=== PATIENT | male | born 1960 | race Caucasian/White ===

== ENCOUNTER 2016-12-28 09:33 | Inpatient (IN) | payer OTHER, MEDICARE ==
[2016-12-28] VITALS (10 sets, daily range): BP systolic 109–128; BP diastolic 65–79; PULSE 56–68; RESP 18–20; TEMP 96.8–98.1; O2SAT 94–100
[~2016-12-28] VITALS: Ht 170.2 cm; Wt 102.5 kg
[~2016-12-28 09:33] MED LIST: ASPI81TA82 PO; ATEN-102 PO; GABA300C3 PO; MOBI15TA PO; ULTR50TA PO; ZOCO40TA PO
[2016-12-28] MEDS ORDERED: TRAM50TA PO (09:53)
[2016-12-28] MEDS ORDERED: SIMV40TA PO (09:53)
[2016-12-28] MEDS ORDERED: ATEN50TA PO (09:53)
[2016-12-28] MEDS ORDERED: GABA300C5 PO (09:53)
[2016-12-28] MEDS ORDERED: ASPI81CH CHEW (09:53)
[2016-12-28] MEDS ORDERED: MELO-1 PO (09:53)
[2016-12-28] MEDS ORDERED: SODIUM CHLORIDE 0.9% FLUSH 10 ML FLUSH IVF PRN (10:00)
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
--- NOTE | 2016-12-28 10:13 | RADRPT ---
EXAM DATE/TIME: 12/28/2016 09:53 [facility] COMPARISON: No previous studies available for comparison. INDICATIONS : Chest pain. MEDICAL HISTORY : Myocardial infarction. SURGICAL HISTORY : Coronary artery stent. ENCOUNTER: Initial ACUITY: 1 day PAIN SCORE: 0/10 LOCATION: Bilateral chest FINDINGS: A single view of the chest demonstrates the lungs to be symmetrically aerated without evidence of mas s, infiltrate or effusion. The cardiomediastinal contours are unremarkable. Osseous structures are intact. CONCLUSION: No acute disease. Nicholas Preciado MD FACR on December 28, 2016 at 10:12 Board Certified Radiologist. This report was verified electronically.
[2016-12-28 10:22] LABS: AUTOMATED NEUTROPHIL # 4.2 TH/MM3 (1.8-7.7); BASOPHIL % 0.5 % (0.0-2.0); EOSINOPHIL # 0.4 TH/MM3 (0-0.4); EOSINOPHIL % 4.7 % (0.0-4.0); HEMATOCRIT 41.5 % (39.0-51.0); HEMO FLAGS DIFF FINAL; LYMPHOCYTE # 3.6 TH/MM3 (1.0-4.8); MEAN CELL VOLUME 90.8 FL (80.0-100.0); MEAN CORPUSCULAR HEMOGLOBIN 30.8 PG (27.0-34.0); MEAN CORPUSCULAR HGB CONC 33.9 % (32.0-36.0); MONO % 10.5 % (0.0-8.0); NEUT % 45.3 % (16.0-70.0); PLATELET COUNT 283 TH/MM3 (150-450); RED BLOOD COUNT 4.57 MIL/MM3 (4.50-5.90); WHITE BLOOD COUNT 9.3 TH/MM3 (4.0-11.0)
[2016-12-28 10:31] LABS: APTT (PATIENT) 27.8 SEC (24.3-30.1); PROTHROMBIN TIME - PATIENT 10.5 SEC (9.8-11.6)
[2016-12-28 10:50] LABS: ANION GAP 5 MEQ/L (5-15); AST (GOT) 24 U/L (15-37); BICARBONATE 25.8 MEQ/L (21.0-32.0); BLOOD UREA NITROGEN 13 MG/DL (7-18); CHLORIDE 109 MEQ/L (98-107); GLOMERULAR FILTRATION RATE 86 ML/MIN (>89); POTASSIUM 3.9 MEQ/L (3.5-5.1); SODIUM (NA) 140 MEQ/L (136-145)
[2016-12-28 10:55] LABS: ALKALINE PHOSPHATASE 64 U/L (45-117); ALT (GPT) 34 U/L (12-78); TOTAL BILIRUBIN ADULT 0.2 MG/DL (0.2-1.0)
[2016-12-28] MEDS ORDERED: IOHEXOL 350 MG/ML 100 ML BTL (for Cath Lab) OTHER ONE (11:06)
[2016-12-28] MEDS ORDERED: IOHEXOL 350 MG/ML 50 ML BTL (for Cath Lab) OTHER ONE (11:06)
--- NOTE | 2016-12-28 11:26 | HHI.HP ---
[facility] Primary Care Physician Osman Dave MD Chief Complaint Chest pain History of Present Illness This is a 46-year-old male that presents to ED with history of CAD sitting at an [place] in the 15 years ago while in [place] needing a stent. He presents stating that about 9:00 this morning while walking to the bathroom he developed a left-sided chest pressure. It made him dizzy. He was short of breath, nauseous, and diaphoretic. He rates as a 10 out of 10. States he took a Tylenol and a baby aspirin and sat down. States symptoms lasted 1 hour. States they're similar to when he needed his stent 10-15 years ago and when he had a heart attack. States he does she really nothing exertional. States he is disabled secondary chronic back issues. He does ride a bicycle about 3 blocks every morning to get his daughter to school. States he rides it slow, never has discomforts. He wrote it this morning with his daughter and did not have discomfort however he felt dizzy. States he follows a golf club maker Dr Gan and believes his last stress test was about a year ago. States he had a normal chemical stress test done. States he has not had a cardiac catheterization since the stent 10-15 years ago. Denies recent illnesses. Denies fevers or chills. Patient continues to smoke cigarettes. Voices compliance with medications. Review of Systems General: Patient denies fevers, chills recent, and recent travel HEENT: Patient denies headache, sore throat, difficulty swallowing. Cardiovascular: Has the chest discomfort as mentioned above. Denies sensation of heart beating rapidly or irregularly. No syncope. He was diaphoretic. Respiratory: He was short of breath. Denies inspirational chest discomfort. Denies coughing wheezing or hemoptysis. GI: He was nauseous. Patient denies vomiting, diarrhea, abdominal pain, bloody stools. Musculoskeletal: Patient denies joint pain or edema. Denies calf pain or edema. Neurovascular: Patient denies numbness, tingling, weakness in extremities. Denies headache. Endocrine: Denies polyuria and polydipsia. Hematologic: Denies easy bruising. Skin: Denies rash or itching. Past Family Social History Allergies: Coded Allergies: No Known Allergies (Unverified , 12/28/16) Past Medical History CAD was stated stent 10-15 years ago. Hypertension, hyperlipidemia, chronic back pain. Tobacco abuse. Denies diabetes. Past Surgical History Cardiac catheterization with stenting about 10-15 years ago. Reported Medications Reported Meds & Active Scripts Active Reported Simvastatin 40 Mg Tab 40 Mg PO HS Tramadol (Tramadol HCl) 50 Mg Tab 50 Mg PO Q4H PRN Meloxicam 15 Mg Tab 15 Mg PO DAILY Gabapentin 300 Mg Cap 300 Mg PO TID Atenolol 50 Mg Tab 50 Mg PO DAILY Aspirin 81 Mg Chew 81 Mg CHEW DAILY Active Ordered Medications Current Medications Medications (Trade) Dose Ordered Sig/Heri Route Start Time Stop Time Status Last Admin (NS Flush) 2 ml UNSCH PRN IVF 12/28/16 10:00 Family History States that his mother had CAD. Social History Patient continues smoke. Smokes one pack of cigarettes daily for 2 years but prior that he smoked one pack of cigarettes daily for about 10 years. Denies alcohol or illicit drugs. States he is disabled secondary to chronic back pain. Physical Exam Vital Signs Vital Signs Date Time Temp Pulse Resp B/P (MAP) Pulse Ox O2 Delivery O2 Flow Rate FiO2 12/28/16 09:56 99 Nasal Cannula 2.00 12/28/16 09:56 60 18 117/75 (89) 99 Nasal Cannula 2.00 120/79 (93) 12/28/16 09:44 98.1 56 20 128/77 (94) 98 Room Air 12/28/16 09:39 98.1 56 20 128/77 (94) Physical Exam GENERAL: This is a well-nourished, well-developed patient, in no apparent distress. Patient speaks in clear complete sentences. Patient is pleasant. HEENT: Head is atraumatic and normocephalic. Neck is supple without lymphadenopathy and trachea is midline. No JVD or carotid bruits. CARDIOVASCULAR: Regular rate and rhythm without murmurs, gallops, or rubs. RESPIRATORY: Clear to auscultation. Breath sounds equal bilaterally. No wheezes , rales, or rhonchi. Chest wall is nontender. No use of accessory muscles. GASTROINTESTINAL: Abdomen is nontender, nondistended. Abdomen soft. No obvious pulsatile mass or bruit. No CVA tenderness. Strong femoral pulses bilaterally. Normal bowel sounds in all quadrants. MUSCULOSKELETAL: Patient is moving upper and lower extremities freely. No calf tenderness or edema, no Homans sign. Strong pulses in upper and lower extremities. NEUROLOGICAL: Patient is alert and oriented. Cranial nerves 2-12 are grossly intact. No focal deficits and speech is clear. SKIN: No rash and turgor is normal. Laboratory Laboratory Tests Test 12/28/16 09:50 White Blood Count 9.3 Red Blood Count 4.57 Hemoglobin 14.1 Hematocrit 41.5 Mean Corpuscular Volume 90.8 Mean Corpuscular Hemoglobin 30.8 Mean Corpuscular Hemoglobin Concent 33.9 Red Cell Distribution Width 15.0 Platelet Count 283 Mean Platelet Volume 7.8 Neutrophils (%) (Auto) 45.3 Lymphocytes (%) (Auto) 39.0 Monocytes (%) (Auto) 10.5 Eosinophils (%) (Auto) 4.7 Basophils (%) (Auto) 0.5 Neutrophils # (Auto) 4.2 Lymphocytes # (Auto) 3.6 Monocytes # (Auto) 1.0 Eosinophils # (Auto) 0.4 Basophils # (Auto) 0.0 CBC Comment DIFF FINAL Differential Comment Prothrombin Time 10.5 Prothromb Time International Ratio 1.0 Activated Partial Thromboplast Time 27.8 Blood Urea Nitrogen 13 Creatinine 0.92 Random Glucose 97 Total Protein 6.8 Albumin 3.2 Calcium Level 9.1 Magnesium Level 2.0 Alkaline Phosphatase 64 Aspartate Amino Transf (AST/SGOT) 24 Alanine Aminotransferase (ALT/SGPT) 34 Total Bilirubin 0.2 Sodium Level 140 Potassium Level 3.9 Chloride Level 109 Carbon Dioxide Level 25.8 Anion Gap 5 Estimat Glomerular Filtration Rate 86 Troponin I LESS THAN 0.02 Result Diagram: 12/28/1650 12/28/16 0950 Course Initial EKG is sinus bradycardia rate of [address] segment depressions or elevations. Caprini VTE Risk Assessment Caprini VTE Risk Assessment: No/Low Risk (score <= 1) Caprini Risk Assessment Model Point Value = 1 Point Value = 2 Point Value = 3 Point Value = 5 Age 41-60 Minor surgery BMI > 25 kg/m2 Swollen legs Varicose veins or History of unexplained or recurrent spontaneous Oral contraceptives or hormone replacement Sepsis (< 1 month) Serious lung disease, including pneumonia (< 1 month) Abnormal pulmonary function Acute myocardial infarction Congestive heart failure (< 1 month) History of inflammatory bowel disease Medical patient at bed rest Age 61-74 Arthroscopic surgery Major open surgery (> 45 min) Laparoscopic surgery (> 45 min) Malignancy Confined to bed (> 72 hours) Immobilizing plaster cast Central venous access Age >= 75 History of VTE Family history of VTE Factor V Leiden Prothrombin [id number] Lupus anticoagulant Anticardiolipin antibodies Elevated serum homocysteine Heparin-induced thrombocytopenia Other congenital or acquired thrombophilia Stroke (< 1 month) Elective arthroplasty Hip, pelvis, or leg fracture Acute spinal cord injury (< 1 month) Prophylaxis Regimen Total Risk Factor Score Risk Level Prophylaxis Regimen 0-1 Low Early ambulation 2 Moderate Order ONE of the following: *Sequential Compression Device (SCD) *Heparin 5000 units SQ BID 3-4 Higher Order ONE of the following medications: *Heparin 5000 units SQ TID *Enoxaparin/Lovenox 40 mg SQ daily (WT < 150 kg, CrCl > 30 mL/min) *Enoxaparin/Lovenox 30 mg SQ daily (WT < 150 kg, CrCl > 10-29 mL/min) *Enoxaparin/Lovenox 30 mg SQ BID (WT < 150 kg, CrCl > 30 mL/min) AND/OR *Sequential Compression Device (SCD) 5 or more Highest Order ONE of the following medications: *Heparin 5000 units SQ TID (Preferred with Epidurals) *Enoxaparin/Lovenox 40 mg SQ daily (WT < 150 kg, CrCl > 30 mL/min) *Enoxaparin/Lovenox 30 mg SQ daily (WT < 150 kg, CrCl > 10-29 mL/min) *Enoxaparin/Lovenox 30 mg SQ BID (WT < 150 kg, CrCl > 30 mL/min) AND *Sequential Compression Device (SCD) Assessment and Plan Assessment and Plan * Chest pain: Patient will continue to have serial cardiac enzymes and EKGs for ruling out purposes. * CAD: We'll reassess with this hospitalization. He will continue his follow- up with his golf club maker on an outpatient basis as well. * Hypertension: Continue current medication. * Hyperlipidemia: Continue current medication. * Tobacco abuse: Patient has been counseled on importance of smoking cessation. Patient is stable at this time. He is agreeable to this plan. Jose C Guerra Dec 28, 2016 11:26
[2016-12-28] MEDS ORDERED: ONDANSETRON HCL 4 MG/2 ML VIAL IV PUSH PRN (11:45)
[2016-12-28] MEDS ORDERED: NITROGLYCERIN 0.4 MG SL 25 TABS/BTL SL PRN (11:45)
[2016-12-28] MEDS ORDERED: ACETAMINOPHEN 500 MG CPLT PO PRN (11:45)
[2016-12-28] MEDS ORDERED: SODIUM CHLORIDE 0.9% FLUSH 10 ML FLUSH IV FLUSH PRN (11:45)
[2016-12-28] MEDS ORDERED: TEMAZEPAM 15 MG CAP PO PRN (11:45)
[2016-12-28] MEDS: NITROGLYCERIN 2% OINT 1 GM PACKET TOP SCH ×2 (12:00→18:40)
[2016-12-28 12:46] LABS: CREATINE KINASE 185 U/L (39-308)
[2016-12-28 12:58] LABS: CKMB 3.7 NG/ML (0.5-3.6)
--- NOTE | 2016-12-28 15:09 | EKG ---
Date Performed: 12/28/2016 Time Performed: 12:07:02 PTAGE: 56 years EKG: SINUS BRADYCARDIA BORDERLINE ECG NO SIG CHANGE PREVIOUS TRACING : 12/28/2016 09.44 DOCTOR: Alexandro Dukes Interpretating Date/Time 12/28/2016 15:07:30
--- NOTE | 2016-12-28 15:09 | EKG ---
Date Performed: 12/28/2016 Time Performed: 09:44:25 PTAGE: 56 years EKG: SINUS BRADYCARDIA BORDERLINE ECG PREVIOUS TRACING : 12/18/2016 18.28 DOCTOR: Alexandro Dukes Interpretating Date/Time 12/28/2016 15:07:40
[2016-12-28] MEDS: GABAPENTIN 300 MG CAP PO SCH ×2 (15:36→18:40)
[2016-12-28 17:08] LABS: CREATINE KINASE 168 U/L (39-308)
[2016-12-28 17:21] LABS: CKMB 3.4 NG/ML (0.5-3.6)
[2016-12-28] MEDS: SODIUM CHLORIDE 0.9% FLUSH 10 ML FLUSH IV FLUSH SCH (21:00)
[2016-12-28] MEDS: PRAVASTATIN SOD 80 MG TAB PO SCH (22:29)
[2016-12-29] VITALS (14 sets, daily range): BP systolic 102–145; BP diastolic 53–88; PULSE 51–78; RESP 16–19; TEMP 97.6–98.7; O2SAT 93–97
[2016-12-29] MEDS: NITROGLYCERIN 2% OINT 1 GM PACKET TOP SCH ×4 (06:00→17:22)
[2016-12-29] MEDS ORDERED: ATENOLOL 50 MG TAB PO SCH (09:00)
--- NOTE | 2016-12-29 09:37 | EKG ---
Date Performed: 12/28/2016 Time Performed: 16:04:16 PTAGE: 56 years EKG: SINUS BRADYCARDIA BORDERLINE ECG NO CHANGE FROM PRIOR PREVIOUS TRACING : 12/28/2016 12.07 DOCTOR: Alexandro Dukes Interpretating Date/Time 12/29/2016 09:36:05
[2016-12-29] MEDS: GABAPENTIN 300 MG CAP PO SCH ×3 (09:43→17:22)
[2016-12-29] MEDS: FAMOTIDINE 20 MG TAB PO SCH ×2 (09:43→20:45)
[2016-12-29] MEDS: ASPIRIN 325 MG TAB PO SCH (09:43)
[2016-12-29] MEDS: SODIUM CHLORIDE 0.9% FLUSH 10 ML FLUSH IV FLUSH SCH ×3 (09:44→20:45)
[2016-12-29] MEDS ORDERED: REGADENOSON INJ 0.4 MG/5 ML SYR ONE (10:58)
--- NOTE | 2016-12-29 13:16 | RADRPT ---
EXAM DATE/TIME: 12/29/2016 10:30 [facility] COMPARISON: No previous studies available for comparison. INDICATIONS : Substernal chest pain with dyspnea and lightheadedness. Angina. DOSE: 35 mCi Tc99m Myoview at stress. 11 mCi Tc99m Myoview at rest. 0.4 mg Lexiscan STRESS SYMPTOMS: Lightheadedness. EJECTION FRACTION: 48% MEDICAL HISTORY : Myocardial infarction. Hypercholesterolemia. Hypertension. SURGICAL HISTORY : Coronary artery stent. ENCOUNTER: Initial ACUITY: 1 day PAIN SCALE: 8/10 LOCATION: Substernal chest TECHNIQUE: The patient underwent pharmacologic stress with infusion of prescribed dose. Continuous ECG tracing was monitored during stress. Gated SPECT imaging was performed after stress and conventional SPECT i maging was performed at rest. The examination was performed on a SPECT/CT scanner, both attenuation and non-corrected datasets were reviewed. FINDINGS: DISTRIBUTION: The maximum perfused segment at stress is in the lateral wall. PERFUSION STUDY: There is a moderate size mild severity reversible defect involving the apical segment of the anterior wall. Small fixed defect is present at the apex. GATED STUDY: There is hypokinesis involving the apical segment of the anterior wall. CONCLUSION: 1. Moderate-sized mild severity reversible defect involving the apical segment of the anterior wall w ith fixed defect in the apex. Ischemia is not excluded. RISK CATEGORY: Intermediate (1-3% Annual Mortality Rate) Patrice Barrett MD on December 29, 2016 at 13:13 Board Certified Radiologist. This report was verified electronically.
--- NOTE | 2016-12-29 15:23 | HHI.PR ---
Subjective Remarks f/u; chest pain in no acute distress. no chest pain or sob at this time. stress test noted. HR is on low side. d/w the RN. Objective Vitals Vital Signs Date Time Temp Pulse Resp B/P (MAP) Pulse Ox O2 Delivery O2 Flow Rate FiO2 12/29/16 13:32 97.9 56 16 123/82 (96) 97 12/29/16 09:40 52 12/29/16 07:37 98.0 65 16 104/68 (80) 95 12/29/16 04:00 57 12/29/16 03:11 98.5 66 18 110/67 (81) 96 12/29/16 00:09 97.6 67 19 102/53 (69) 93 12/29/16 00:00 59 12/28/16 20:00 64 12/28/16 19:48 97.8 65 19 109/69 (82) 94 12/28/16 16:15 96.8 68 20 115/65 (82) 96 12/28/16 16:13 97.8 68 20 115/65 (82) 97 12/28/16 16:00 56 Result Diagram: 12/28/16 0950 12/28/16 0950 Imaging Last Impressions Chest X-Ray 12/28/16 0949 Signed Impressions: Service Date/Time: Wednesday, December 28, 2016 09:53 - CONCLUSION: No acute disease. Nicholas Preciado MD FACR Objective Remarks GENERAL: This is a well-nourished, well-developed patient, in no apparent distress. CARDIOVASCULAR:bradycardic and regular rhythm without murmurs, gallops, or rubs. RESPIRATORY: Clear to auscultation. Breath sounds equal bilaterally. No wheezes , rales, or rhonchi. GASTROINTESTINAL: Abdomen soft, non-tender, nondistended. Normal, active bowel sounds MUSCULOSKELETAL: Extremities without clubbing, cyanosis, or edema. NEURO: Alert & Oriented x4 to person, place, time, situation. Moves all ext x4 Medications and IVs Current Medications Sodium Chloride (NS Flush) 2 ml UNSCH PRN IVF FLUSH AFTER USING IV ACCESS; Start 12/28/16 at 10:00 Atenolol (Tenormin) 50 mg DAILY PO ; Start 12/29/16 at 09:00 Gabapentin (Neurontin) 300 mg TID PO Last administered on 12/29/16 14:47; Start 12/28/16 at 13:00 Pravastatin Sodium (Pravachol) 80 mg HS PO Last administered on 12/28/16 22: 29; Start 12/28/16 at 21:00 Sodium Chloride (NS Flush) 2 ml UNSCH PRN IV FLUSH FLUSH AFTER USING IV ACCESS ; Start 12/28/16 at 11:45 Sodium Chloride (NS Flush) 2 ml BID IV FLUSH Last administered on 12/29/16 09 :44; Start 12/28/16 at 21:00 Acetaminophen (Tylenol) 500 mg Q4H PRN PO HEADACHE; Start 12/28/16 at 11:45 Morphine Sulfate (Morphine Inj) 2 mg Q4H PRN IV PUSH PAIN SCALE 8 TO 10; Start 12/28/16 at 11:45 Ondansetron HCl (Zofran Inj) 4 mg Q6H PRN IV PUSH NAUSEA; Start 12/28/16 at 11 :45 Famotidine (Pepcid) 20 mg BID PO Last administered on 12/29/16 09:43; Start 12/29/16 at 09:00 Nitroglycerin (Nitroglycerin 2% Oint) 1 inch Q6HR TOP Last administered on 14:47; Start 12/28/16 at 12:00 Nitroglycerin (Nitrostat Sl) 0.4 mg Q5M PRN SL CHEST PAIN; Start 12/28/16 at 11:45 Aspirin (Aspirin) 325 mg DAILY PO Last administered on 12/29/16 09:43; Start 12/29/16 at 09:00 Temazepam (Restoril) 15 mg HS PRN PO INSOMNIA; Start 12/28/16 at 11:45 Regadenoson (Lexiscan Inj) 0.4 mg STK-MED ONCE .ROUTE Last administered on 10:58; Start 12/29/16 at 10:58; Stop 12/29/16 at 10:59; Status DC A/P Assessment and Plan A/P - chest pain with abnormal stress test and history of CAD/ stent placement cardiac enzymes negative- continue aspirin, BB and statin will consult cardiology. -hypertension; on Atenolol- will decrease the dose due to bradycardia- continue to monitor -bradycardia- decrease Atenolol and continue to monitor -DVT prophylaxis- pending cardiology evaluation. Nando Gómez MD Dec 29, 2016 15:23
--- NOTE | 2016-12-29 16:13 | PD.CONS ---
HPI Consult Requested By Reason for Consult Chest pain and abnormal stress nuclear Primary Care Physician Osman Dave MD History of Present Illness I have reviewed office and hospital records. The patient is followed by in my group. He had an NE with his stent approximately 1998. Stress nuclear within the last 3 years done as an outpatient was normal. He is moderately active and taking his daughter to the bus stop on a bicycle. He has had no cardiac symptoms until yesterday. On riding back from the bus stop he had a stop once because of mild lightheadedness. At 9 AM in the morning he developed a sharp and then left precordial chest pressure which expanded across his chest. He was sweaty with this and slightly short of breath. There was no radiation or other associated symptoms and this resolved in 10-15 minutes. It has not recurred. EKGs show sinus rhythm and are normal. Stress nuclear shows a moderate size area of mild apical anterior ischemia. Review of Systems Consitutional: DENIES: Fatigue Eyes: DENIES: Amaurosis Fugax HEENT: COMPLAINS OF: Lightheadedness Respiratory: COMPLAINS OF: Snoring, Shortness of breath, DENIES: Cough, Wheezing Cardiovascular: COMPLAINS OF: Chest pain Neurologic: COMPLAINS OF: Poor Balance, DENIES: Tingling or numbness Musculoskeletal: COMPLAINS OF: Joint pain, Limited range of motion Psychiatric: DENIES: Anxiety, Depression Past Family Social History Allergies: Coded Allergies: No Known Allergies (Unverified , 12/28/16) Past Medical History Hypertension Hyperlipidemia Obesity Chronic back pain Past Surgical History Appendectomy Reported Medications Reported Meds & Active Scripts Active Reported Simvastatin 40 Mg Tab 40 Mg PO HS Tramadol (Tramadol HCl) 50 Mg Tab 50 Mg PO Q4H PRN Meloxicam 15 Mg Tab 15 Mg PO DAILY Gabapentin 300 Mg Cap 300 Mg PO TID Atenolol 50 Mg Tab 50 Mg PO DAILY Aspirin 81 Mg Chew 81 Mg CHEW DAILY Active Ordered Medications Current Medications Medications (Trade) Dose Ordered Sig/Heri Route Start Time Stop Time Status Last Admin (NS Flush) 2 ml UNSCH PRN IVF 12/28/16 10:00 (Neurontin) 300 mg TID PO 12/28/16 13:00 12/29/16 14:47 (Pravachol) 80 mg HS PO 12/28/16 21:00 12/28/16 22:29 (NS Flush) 2 ml UNSCH PRN IV FLUSH 12/28/16 11:45 (NS Flush) 2 ml BID IV FLUSH 12/28/16 21:00 12/29/16 09:44 (Tylenol) 500 mg Q4H PRN PO 12/28/16 11:45 (Morphine Inj) 2 mg Q4H PRN IV PUSH 12/28/16 11:45 (Zofran Inj) 4 mg Q6H PRN IV PUSH 12/28/16 11:45 (Pepcid) 20 mg BID PO 12/29/16 09:00 12/29/16 09:43 (Nitroglycerin 2% Oint) 1 inch Q6HR TOP 12/28/16 12:00 12/29/16 14:47 (Nitrostat Sl) 0.4 mg Q5M PRN SL 12/28/16 11:45 (Aspirin) 325 mg DAILY PO 12/29/16 09:00 12/29/16 09:43 (Restoril) 15 mg HS PRN PO 12/28/16 11:45 (Tenormin) 25 mg DAILY PO 12/30/16 09:00 Family History The patient has a domestic partner. He is originally from the [place]. He smokes a few cigarettes per day and does not drink anymore. Family history noncontributory Physical Exam Vital Signs Vital Signs Date Time Temp Pulse Resp B/P (MAP) Pulse Ox O2 Delivery O2 Flow Rate FiO2 12/29/16 16:02 98.2 64 16 131/88 (102) 95 12/29/16 15:32 3.00 12/29/16 13:32 97.9 56 16 123/82 (96) 97 12/29/16 09:40 52 12/29/16 07:37 98.0 65 16 104/68 (80) 95 12/29/16 04:00 57 12/29/16 03:11 98.5 66 18 110/67 (81) 96 12/29/16 00:09 97.6 67 19 102/53 (69) 93 12/29/16 00:00 59 12/28/16 20:00 64 12/28/16 19:48 97.8 65 19 109/69 (82) 94 12/28/16 16:15 96.8 68 20 115/65 (82) 96 12/28/16 16:13 97.8 68 20 115/65 (82) 97 Physical Exam CONSTITUTIONAL: Overweight patient in no apparent distress. EYES: Conjunctiva normal. Sclera nonicteric. Eyelids normal. No xanthelasma. HEENT: Oral mucosa normal without pallor or cyanosis. NECK: JVD less than or equal to 5 cm of water. RESPIRATORY: Breathing is unlabored without accessory muscle use. Normal breath sounds. No wheezes, rales or rubs present. CARDIOVASCULAR: Normal point of maximal impulse. No cardiac thrill present. Regular rate and rhythm. No murmurs, gallops, rubs or clicks present. PULSES: Carotid arteries: Normal pulses bilaterally without bruits. Palmar arteries: Radial pulses 2+ bilaterally Abdominal aorta: Aortic pulses normal without bruits or enlargement. Femoral arteries: 2+ bilaterally. No bruits present. Pedal pulses: 1+ bilaterally PERIPHERAL CIRCULATION: No cyanosis, clubbing, edema or varicosities present. GASTROINTESTINAL: Normal bowel sounds. Nontender without rigidity or guarding. No masses present. No hepatomegaly. Liver is nontender to palpation and spleen is nonpalpable. Digital rectal exam-not indicated for cardiovascular exam. MUSCULOSKELETAL: No kyphosis or scoliosis present. The patient is not ambulated. Able to undergo rehabilitation. SKIN: Skin turgor is normal. No rashes. NEUROLOGIC: Grossly oriented to person, place and time. Normal mood and appropriate affect. Laboratory Labs have been reviewed. Chest X-Ray 12/28/16948 Signed Impressions: Service Date/Time: Wednesday, December 28, 2016 09:53 - CONCLUSION: No acute disease. Nicholas Preciado MD FACR Result Diagram: 12/28/1694912/28/16949 Imaging Last 48 hours Impressions Chest X-Ray 12/28/16948 Signed Impressions: Service Date/Time: Wednesday, December 28, 2016 09:53 - CONCLUSION: No acute disease. Nicholas Preciado MD FACR Assessment and Plan Assessment and Plan Problems: Chest discomfort suggestive of unstable angina. Hypertension Hyperlipidemia Obesity Recommendations: I have spoken to the chest pain clinic PA who will start a heparin drip. No heavy exertion Aspirin Low-cholesterol/salt diet with weight loss. Continue atenolol. Catheterization with possible intervention on Saturday if stable with my partner, Dr. Macdonald. The risks/benefits/alternatives were explained and informed consent obtained. All questions were answered. Galen Sanders MD Dec 29, 2016 16:13
[2016-12-29] MEDS: HEPARIN 25,000 UNITS/D5W 250ML IV PRN (17:27)
[2016-12-29] MEDS ORDERED: HEPARIN SODIUM - IV 10,000 UNITS/10 ML VIAL IV ONE (18:00)
[2016-12-29] MEDS: PRAVASTATIN SOD 80 MG TAB PO SCH (20:45)
[2016-12-30] VITALS (11 sets, daily range): BP systolic 110–129; BP diastolic 56–82; PULSE 48–78; RESP 18–20; TEMP 97.4–98.2; O2SAT 94–96
[2016-12-30] MEDS: NITROGLYCERIN 2% OINT 1 GM PACKET TOP SCH ×4 (01:17→18:17)
[2016-12-30] MEDS: MORPHINE SULFATE 4 MG/ML INJ IV PUSH PRN (02:02)
[2016-12-30] MEDS: SODIUM CHLORIDE 0.9% FLUSH 10 ML FLUSH IV FLUSH SCH ×2 (09:00→20:26)
[2016-12-30 09:42] LABS: APTT (PATIENT) 57.8 SEC (24.3-30.1)
[2016-12-30] MEDS: GABAPENTIN 300 MG CAP PO SCH ×3 (09:50→18:18)
[2016-12-30] MEDS: FAMOTIDINE 20 MG TAB PO SCH ×2 (09:50→20:25)
[2016-12-30] MEDS: ATENOLOL 25 MG TAB PO SCH (09:50)
[2016-12-30] MEDS: ASPIRIN 325 MG TAB PO SCH (09:50)
[2016-12-30] MEDS ORDERED: PNEUMOCOCCAL POLYVALENT INJ 25 MCG/0.5 ML SYR IM ONE (10:00)
[2016-12-30] MEDS: HEPARIN 25,000 UNITS/D5W 250ML IV PRN (10:38)
--- NOTE | 2016-12-30 11:45 | HHI.PR ---
Subjective Remarks looks comfortable. no chest pain or sob. no new complaints. Objective Vitals Vital Signs Date Time Temp Pulse Resp B/P (MAP) Pulse Ox O2 Delivery O2 Flow Rate FiO2 12/30/16 09:51 70 12/30/16 08:19 97.9 65 20 120/56 (77) 96 12/30/16 07:56 48 12/30/16 04:00 78 12/30/16 04:00 97.9 64 18 110/64 (79) 94 12/30/16 00:00 54 12/29/16 23:06 97.9 51 18 112/61 (78) 95 12/29/16 20:25 97 12/29/16 20:18 98.7 71 18 145/76 (99) 95 12/29/16 20:00 78 12/29/16 17:39 54 12/29/16 16:02 98.2 64 16 131/88 (102) 95 12/29/16 15:32 3.00 12/29/16 13:40 53 12/29/16 13:32 97.9 56 16 123/82 (96) 97 I/O 12/29/16 12/29/16 12/29/16 12/30/16 12/30/16 12/30/16 06:59 14:59 22:59 06:59 14:59 22:59 Intake Total 250 ml Balance 250 ml Intake IV Total 250 ml Result Diagram: 12/28/16 0950 12/28/16 0950 Imaging Last Impressions Myocardial Perfusion Scan Nuc Med 12/29/16 0000 Signed Impressions: Service Date/Time: Thursday, December 29, 2016 10:30 - CONCLUSION: 1. Moderate-sized mild severity reversible defect involving the apical segment of the anterior wall with fixed defect in the apex. Ischemia is not excluded. RISK CATEGORY: Intermediate (1-3%% Annual Mortality Rate) Patrice Barrett MD Chest X-Ray 12/28/16 0949 Signed Impressions: Service Date/Time: Wednesday, December 28, 2016 09:53 - CONCLUSION: No acute disease. Nicholas Preciado MD FACR Objective Remarks GENERAL: This is a well-nourished, well-developed patient, in no apparent distress. CARDIOVASCULAR:bradycardic and regular rhythm without murmurs, gallops, or rubs. RESPIRATORY: Clear to auscultation. Breath sounds equal bilaterally. No wheezes , rales, or rhonchi. GASTROINTESTINAL: Abdomen soft, non-tender, nondistended. Normal, active bowel sounds MUSCULOSKELETAL: Extremities without clubbing, cyanosis, or edema. NEURO: Alert & Oriented x4 to person, place, time, situation. Moves all ext x4 Medications and IVs Current Medications Sodium Chloride (NS Flush) 2 ml UNSCH PRN IVF FLUSH AFTER USING IV ACCESS; Start 12/28/16 at 10:00 Atenolol (Tenormin) 50 mg DAILY PO ; Start 12/29/16 at 09:00; Stop 12/29/16 at 15:24; Status DC Gabapentin (Neurontin) 300 mg TID PO Last administered on 12/30/16 09:50; Start 12/28/16 at 13:00 Pravastatin Sodium (Pravachol) 80 mg HS PO Last administered on 12/29/16 20: 45; Start 12/28/16 at 21:00 Sodium Chloride (NS Flush) 2 ml UNSCH PRN IV FLUSH FLUSH AFTER USING IV ACCESS ; Start 12/28/16 at 11:45 Sodium Chloride (NS Flush) 2 ml BID IV FLUSH Last administered on 12/29/16 09 :44; Start 12/28/16 at 21:00 Acetaminophen (Tylenol) 500 mg Q4H PRN PO HEADACHE; Start 12/28/16 at 11:45 Morphine Sulfate (Morphine Inj) 2 mg Q4H PRN IV PUSH PAIN SCALE 8 TO 10 Last administered on 12/30/16 02:02; Start 12/28/16 at 11:45 Ondansetron HCl (Zofran Inj) 4 mg Q6H PRN IV PUSH NAUSEA; Start 12/28/16 at 11 :45 Famotidine (Pepcid) 20 mg BID PO Last administered on 12/30/16 09:50; Start 12/29/16 at 09:00 Nitroglycerin (Nitroglycerin 2% Oint) 1 inch Q6HR TOP Last administered on 06:41; Start 12/28/16 at 12:00 Nitroglycerin (Nitrostat Sl) 0.4 mg Q5M PRN SL CHEST PAIN; Start 12/28/16 at 11:45 Aspirin (Aspirin) 325 mg DAILY PO Last administered on 12/30/16 09:50; Start 12/29/16 at 09:00 Temazepam (Restoril) 15 mg HS PRN PO INSOMNIA; Start 12/28/16 at 11:45 Regadenoson (Lexiscan Inj) 0.4 mg STK-MED ONCE .ROUTE Last administered on 10:58; Start 12/29/16 at 10:58; Stop 12/29/16 at 10:59; Status DC Atenolol (Tenormin) 25 mg DAILY PO Last administered on 12/30/16 09:50; Start 12/30/16 at 09:00 Heparin Sodium/ Dextrose 250 ml @ 10 mls/hr TITRATE PRN IV Ordered parameters Last administered on 12/30/16 10:38; Start 12/29/16 at 17:00 Pneumococcal Polyvalent Vaccine (Pneumovax-23 Inj) 25 mcg ONCE ONCE IM ; Start 12/30/16 at 10:00; Stop 12/30/16 at 10:01; Status DC Heparin Sodium (Porcine) (Heparin Inj) 4,000 units NOW ONCE IV Last administered on 12/29/16 18:08; Start 12/29/16 at 18:00; Stop 12/29/16 at 18 :01; Status DC A/P Assessment and Plan A/P - chest pain with abnormal stress test and history of CAD/ stent placement cardiac enzymes negative- continue aspirin, BB and statin started on heparin drip- plan for cardiac cath tomorrow. -hypertension; on Atenolol- decreased the dose due to bradycardia- continue to monitor -bradycardia- decreased Atenolol and continue to monitor -DVT prophylaxis- on Heparin drip. Discharge Planning when cleared by cardiology. Nando Gómez MD Dec 30, 2016 11:45
--- NOTE | 2016-12-30 12:53 | TR ---
Date Performed: 12/29/2016 Time Performed: 11:39:53 DOCTOR: Alexandro Dukes DRUG LIST: CLINICAL HISTORY: REASON FOR TEST: CHEST PAIN REASON FOR ENDING: OBSERVATION: CONCLUSION: Lexiscan stress test was performed under standard four minute protocol. Radionuclide was injected one minute prior to ending the test. No electrocardiographic abormalities were present to suggest ischemia. Nuclear imaging and interpretation are pending. COMMENTS:
--- NOTE | 2016-12-30 14:46 | MB ---
cc: ADRYAN BETTS DO DATE OF CONSULTATION: 12/30/2016. REASON FOR CONSULTATION: : Abnormal stress test for cardiac catheterization. HISTORY OF PRESENT ILLNESS Silvestre Jade is a pleasant 56-year-old male who sees my partner Dr. Villanueva who presented to [facility] on December 28, 2016 due to chest pain. He states that he is relatively active and he was taking his daughter to the bus stop on a bicycle. On riding back from the busstop, he had to stop once because of mild lightheadedness. Then he started developing left-sided chest pain which was partially sharp and partially pressure which extended across his chest. He did get sweaty and slightly short of breath. It did not radiate anywhere. This all resolved within 10-15 minutes. He was seen in the chest pain unit and underwent stress testing which showed a moderate sized area of mild apical anterior ischemia. Because of this, he was recommended cardiac catheterization. On seeing him, he is currently hemodynamically stable without chest pain or shortness of breath. PAST MEDICAL HISTORY: 1. Coronary artery disease with a history of myocardial infarction (1998) with stenting of an unknown coronary artery. 2. Hypertension. 3. Hyperlipidemia. 4. Obesity. 5. Chronic back pain. PAST SURGICAL HISTORY: 1. Appendectomy. ALLERGIES: NO KNOWN DRUG ALLERGIES. MEDICATIONS: 1. Zocor 40 milligrams every night. 2. Atenolol 50 milligrams daily. 3. Aspirin 81 milligrams daily. 4. Meloxicam 15 milligrams daily. 5. Tramadol 50 milligrams every four hours as needed for pain. 6. Gabapentin 300 milligrams three times a day. SOCIAL HISTORY: The patient no longer drinks alcohol. He still smokes a few cigarettes per day. Denies illicit drug abuse. FAMILY HISTORY: Denies premature coronary artery disease or sudden cardiac within the family. REVIEW OF SYSTEMS Fourteen systems were reviewed including osteopathic with pertinent positives and negatives as above; otherwise negative. PHYSICAL EXAMINATION: VITAL SIGNS: Temperature 97.9, heart rate 65, blood pressure 120/56, respirations 20, pulse ox 96% on 3 liters. GENERAL: In general, the patient appears well in no acute distress, alert awake and oriented x3. HEAD, EYES, EARS, NOSE, THROAT: Extraocular muscles intact. Mucous membranes moist. NECK: Supple. No JVD at 45 degrees. No carotid bruits heard bilaterally. Carotid upstroke is brisk in nature. HEART: Regular rate and rhythm. Positive first and second heart sounds with no murmurs, gallops or rubs. LUNGS: Clear to auscultation bilaterally. No wheezes, rales or rhonchi. ABDOMEN: The abdomen is soft, nontender and nondistended. No organomegaly noted. EXTREMITIES: No clubbing, cyanosis or edema. Femoral and distal pulses are intact bilaterally. NEUROLOGIC: No focal deficits. SKIN: Warm, dry and intact. OSTEOPATHIC: Osteopathically, no kyphoscoliosis, lordosis or paraspinal tender points. LABORATORY FINDINGS: Hemoglobin 14.1, hematocrit 41.5, platelets 283,000. Potassium 3.9, BUN 13, creatinine 0.92. Troponin 0.04. EKGS: Electrocardiogram (December 28, 2016 at 1604): Sinus bradycardia, no acute S-T-T wave changes. Pharmacologic nuclear stress test (December 29, 2016): Moderate sized mild severity reversible defect involving the apical segment of the anterior wall with a fixed defect in the apex. Intermediate risk stress test. IMPRESSION: 1. Chest discomfort suggestive of unstable angina. 2. Abnormal pharmacologic nuclear stress test as above with intermediate risk. 3. Hypertension. 4. Hyperlipidemia. 5. Obesity. 6. Tobacco abuse. RECOMMENDATIONS: 1. Mr. Jade presented with chest pain and underwent stress testing showing possible ischemia in the anterior wall with an intermediate risk. Because of this, he will be recommended cardiac catheterization. 2. Risks, benefits and alternatives were explained to him and he consents as such. 3. He will be placed on aspirin and a heparin drip. 4. I spoke to him for greater than three minutes about tobacco cessation, which he will consider. 5. Further recommendations after coronary visualization. Thank you for allowing me to see Silvestre Jade. If there are any questions please do not hesitate to call. Adryan Betts DO VGYariel/JCC /1:49 PM /2:34 PM
[2016-12-30] MEDS: PRAVASTATIN SOD 80 MG TAB PO SCH (20:25)
[2016-12-31] VITALS (16 sets, daily range): BP systolic 97–157; BP diastolic 60–100; PULSE 47–89; RESP 16–20; TEMP 96–98; O2SAT 94–99
[2016-12-31] MEDS: NITROGLYCERIN 2% OINT 1 GM PACKET TOP SCH ×4 (00:58→18:22)
[2016-12-31] MEDS: MORPHINE SULFATE 4 MG/ML INJ IV PUSH PRN (01:35)
[2016-12-31] MEDS ORDERED: CYCLOBENZAPRINE HCL 10 MG TAB PO ONE (02:45)
[2016-12-31] MEDS: SODIUM CHLORIDE 0.9% FLUSH 10 ML FLUSH IV FLUSH SCH ×3 (08:28→21:55)
[2016-12-31] MEDS: GABAPENTIN 300 MG CAP PO SCH ×3 (08:28→18:22)
[2016-12-31] MEDS: ASPIRIN 325 MG TAB PO SCH (08:28)
[2016-12-31] MEDS: FAMOTIDINE 20 MG TAB PO SCH ×2 (08:29→21:54)
[2016-12-31] MEDS: ATENOLOL 25 MG TAB PO SCH (08:32)
[2016-12-31 08:48] LABS: APTT (PATIENT) 48.3 SEC (24.3-30.1)
--- NOTE | 2016-12-31 09:54 | HHI.PR ---
Subjective Remarks Patient seen this morning around 9:30 AM. Says he is feeling all right. Denies any chest pain or shortness of breath. Denies any nausea or vomiting. Objective Vital Signs Date Time Temp Pulse Resp B/P (MAP) Pulse Ox O2 Delivery O2 Flow Rate FiO2 12/31/16 08:50 72 12/31/16 07:14 96.0 70 20 157/100 (119) 94 12/31/16 03:26 97.5 89 20 140/81 (100) 99 12/30/16 23:09 97.6 65 18 129/82 (98) 96 12/30/16 19:51 97.4 68 18 127/82 (97) 96 12/30/16 16:30 59 12/30/16 16:23 97.9 64 18 124/60 (81) 96 12/30/16 12:03 98.2 68 20 122/60 (80) 96 12/30/16 12:02 62 I/O 12/30/16 12/30/16 12/30/16 12/31/16 12/31/16 12/31/16 07:00 15:00 23:00 07:00 15:00 23:00 Intake Total 250 ml Balance 250 ml Intake IV Total 250 ml Result Diagram: 12/28/1694912/28/16949 Objective Remarks GENERAL: Patient standing in the room. Appears comfortable. SKIN: Warm and dry. HEAD: Normocephalic. EYES: No scleral icterus. No injection or drainage. NECK: Supple, trachea midline. No JVD. CARDIOVASCULAR: Regular rate and rhythm without murmurs, gallops, or rubs. RESPIRATORY: Breath sounds equal bilaterally. No accessory muscle use. GASTROINTESTINAL: Abdomen soft, non-tender, nondistended. MUSCULOSKELETAL: No cyanosis, or edema. BACK: Nontender without obvious deformity. No CVA tenderness. A/P Assessment and Plan //chest pain with abnormal stress test and history of CAD/ stent placement cardiac enzymes negative- continue aspirin, BB and statin started on heparin drip - plan for cardiac cath today //hypertension; on Atenolol- decreased the dose due to bradycardia -N/16 Blood pressure acceptable.- continue to monitor //bradycardia- decreased Atenolol 12/30. = 12/31. Heart rate stable in the 70s after decreasing atenolol yesterday. Continue to monitor. //DVT prophylaxis- on Heparin drip. Discharge Planning Pending results of cardiac catheterization. We'll need clearance from cardiology. Maxi Gilman MD Dec 31, 2016 09:53
[2016-12-31] MEDS ORDERED: VERAPAMIL HCL 5 MG/2 ML VIAL ONE (10:03)
[2016-12-31] MEDS ORDERED: MIDAZOLAM HCL 2 MG/2 ML VIAL ONE (10:03)
[2016-12-31] MEDS ORDERED: HEPARIN SODIUM - IV 10,000 UNITS/10 ML VIAL ONE ×2 (10:03→10:26)
[2016-12-31] MEDS ORDERED: HEPARIN-NS/PF INJ 1,500 ML ONE (10:03)
[2016-12-31] MEDS ORDERED: NITROGLYCERIN INJ 5 ML ONE (10:03)
--- NOTE | 2016-12-31 11:51 | CATHPROC ---
[employer] HIS Report Study Information Study Number Admission Scheduled Start Study Start [id number] Dec 28 2016 11:05AM 12/30/2016 Dec 31 2016 9:53AM [place] [facility]iac Catheterization Admit Source Facility Department Emergency department [facility] - Survey Director Physician and Clinical Staff Initial Adryan Pantoja Sampler And Test Preparerflorecita Melgar RN, Vidhya Haro,ANAM TECH2 Scrub Joshua Rivera RCIS(BS) Procedures Performed Procedure Location (Site) Vessel Name Coronary Angiograms LCA Left Coronary Coronary Angiograms RCA Right Coronary Restenosis LAD Prox Left Coronary Wire insertion Fem Art (right) Femoral Art Wire insertion Radial (right) Radial Art. Equipment Time Electrical Engineering Drafting Officer Description Size Mfg Part Number Used/Scraped [id number] 10:42 [employer] WIRE, [employer]otion Systems FIELDER XT 190CM 180CM Used *[id number] 10:35 [employer] WIRE, [employer] PROWATER 180CM 180CM Used *[id number] TRANSDUCER, TRUWAVE [id number] 10:01 FIA Formula E * Used W/STOCKCOCK *[id number] 10:47 Proxino WIRE, CHOICE PT 182CM 182CM Used *[id number] *[id number] *[id number] 10:01 Hithru PACK, CCL CUSTOM * Used *[id number] 10:01 Hithru SUPPORT, ARTERIAL ADULT [id number] *[id number] Used [id number] 10:33 MEDTRONIC/AVE EBU 3.5 Z2 GUIDE CATHETER FR 6 Used *[id number] BAND, RADIAL COMPRESSION TR [id number] 11:22 TTi [employer] MEDICAL 29CM Used LARGE 29 *[id number] 10:01 [employer] WIRE, EXCHANGE 260CM 3MMJ 260CM Used *[id number] 10:01 NAMIC MANIFOLD, 4 PORT * Used *[id number] 10:01 NYCOMED OMNIPAQUE, 350 MG, 150ML 150ML [id number] Used [id number] 10:01 [employer] BLANKET,WARM AIR CCL * Used *[id number] SHEATH, FR6 TRANSRADIAL RM*[id number] 10:01 TERUMO [employer] FR 6 Used SLENDER 10CM *[id number] WIRE, RUNTHROUGH NS FLOPPY [id number] 11:01 TER[employer]ICAL 180CM Used .014 180CM *[id number] Equipment Model, Serial, Lot Number and Expiration Data Description Model Number Serial Number Lot Number Expiration Date DEEPAK WHITE PT 182CM [id number] 09-28-2018 History: Current Medications Medication Dosage/Unit Route Frequency Last Date/Time Taken ASA TRAMADOL Statins (any) Beta Brandon History: Allergies Allergy Reaction No Known Allergies History: Risk Factors Family History of Hypertension Dyslipidemia Previous IN Previous Heart Failure Premature CAD Yes Yes No Yes No Prior Valve Prior PCI Prior PCIDate Prior CABG Surgery No Yes 03/18/1998 No Cerebrovascular Peripheral Artery Chronic Lung On Dialysis Diabetes Disease Disease Disease No No No Yes No History: Symptoms/Diagnosis Selection Items Chest pain SOB History: Stress Tests Stress or Imaging Studies Performed Yes Standard Exercise Stress Test No Stress Echo No Stress Test SPECT Stress Test SPECT Result Stress Test SPECT Ischemia Risk/Extent Yes Positive Intermediate Stress Test CMR No Cardiac CTA Coronary Calcium Score No No History: Other Current Smoker Method Packs a Day Years Used Pack Years Yes Cigarettes 1 10 10 Labs Hgb (g/dl) Hct (%) Platelets (thousands) 11.60-17.00 35.00-51.00 150.00-450.00 14.1 41.5 283 Glucose (mg/dl) BUN (mg/dl) Creatinine (mg/dl) BUN:Creatinine (1:x) 74.00-106.00 7.00-18.00 0.50-1.30 10.00-20.00 97 13 0.9 14.4 Na (meq/l) K (meq/l) 136.00-145.00 3.50-5.10 140 3.9 Troponin I (ng/ml) CPK (u/l) CPK-MB (ng/ML) 0.02-0.05 26.00-308.00 0.50-3.60 0.04 168 3.4 Medication Medication Total Dose (Bolus/Oral) Medication Total Dosage/Unit 1% XYLOCAINE 20 mL FENTANYL 25 mcg HEPARIN 7300 units RADIAL COCKTAIL 5 mL (Bolus) VERSED 1 mg Medications (Bolus/Oral) Medication Time Given Dosage/Unit Administered By Reason 12/31/2016 10:16:45 FENTANYL 25 mcg Jayson Melgar RN AM 25 mcg FENTANYL given in lab by Jayson Melgar RN in Right Antecubital via Peripheral IV. Ordered by Adryan Pulido 12/31/2016 10:17:59 VERSED 1 mg Jayson Melgar RN, AM 1 mg VERSED given in lab by Jayson Melgar RN in Right Antecubital via Peripheral IV. Ordered by Adryan Melton 12/31/2016 10:18:14 1% XYLOCAINE 20 mL Adryan Macdonald AM 20 mL 1% XYLOCAINE given in lab by Adryan Macdonald in Right Radial via Subcutaneous. Ordered by Adryan Blake 12/31/2016 10:20:08 RADIAL COCKTAIL 5 mL (Bolus) Adryan Macdonald AM 5 mL (Bolus) RADIAL COCKTAIL given in lab by Adryan Macdonald in Right Radial via Radial. Using [S olution Name]. Ordered by Adryan Macdonald. 4000 U heparin, 2.5mg Verapamil, 200mcg NTG 12/31/2016 10:34:20 HEPARIN 7300 units Jayson Melgar RN, AM 7300 units HEPARIN given in lab by Jayson Melgar RN in Right Antecubital via Peripheral IV. Ordered by Adryan Macdonald Medication (Drip) Medication Time Given Dosage/Unit Concentration/Unit Diluent (ml) Solution IV Solutions 12/31/2016 9:53:33 AM 0 mL (IV) 500 NaCl .9 IV Solutions given in lab by Jayson Melgar RN in Right Antecubital via Peripheral IV. Pump/Drip Flow = 20 ml/hr using NaCl .9. Ordered by Adryan Macdonald. Initial Case Assessment Cardiovascular HR Rhythm NIBP Chest Pain 60 sr 132/86 0 Circulatory - Right Pulses Dorsalis Pedis Femoral Radial 1 2 2 Scale (0,1,2,3,4,d) Circulatory - Left Pulses Dorsalis Pedis Femoral Radial 1 2 Scale (0,1,2,3,4,d) Neurological State Oriented to time-place- Alert Moves all extremities person Respiration - General Respiration Rate SpO2 (%) (B/min) 10 98 Final Case Assessment Cardiovascular HR Rhythm NIBP Chest Pain 63 sr 135/81 0 Circulatory - Right Pulses Dorsalis Pedis Femoral Radial 1 2 2 Scale (0,1,2,3,4,d) Circulatory - Left Pulses Dorsalis Pedis Femoral Radial 1 2 Scale (0,1,2,3,4,d) Neurological State Oriented to time-place- Alert Moves all extremities person Respiration - General Respiration Rate SpO2 (%) (B/min) 15 96 Chronological Log Time Study Chronological Log 9:53:23 Patient arrived via Bed. Heparin drip discontinued at 09:40 prior to track laborer arrival 9:53:23 Patient Name, D.O.B, / Armband Verified By R.N. 9:53:24 Consent signed by the physician and the patient and verified by the Survey Director staff. 9:53:24 Pre-op and post- op instructions given; patient acknowledges understanding of instructions. 9:53:25 Verbal Stimulation=2 Physical Stimulation=2 Airway=2 Respiration=2 TOTAL=8. (0=absent, 1=bowers ited, 2=present) 9:53:26 Presedation assessment performed by Survey Director RN. 9:53:27 Allens test performed on the right radial and ulnar artery. 9:53:28 Immediate Presedation assesment performed by physician. 9:53:28 Patient has been NPO for More than 6Hrs. 9:53:30 Skin Breakdown-none 9:53:30 Patient Warmer Placed on the Table. 9:53:31 Torin Prominences Protected 9:53:32 A # 20 IV was noted in the Antecubital (right). Grade = patent IV Solutions given in lab by Jayson Melgar RN in Right Antecubital via Peripheral IV. Pump/Drip Flow = 20 ml/hr using 9:53:33 NaCl .9. Ordered by Adryan Macdonald 9:53:34 History and physical on the chart or being dictated. Vitals capture started with the following parameters, Patient=Adult, Interval=5 min, Initial Pr htbixi=563 mmHg, 10:00:32 Deflation Rate=5 mmHg, Cuff placed on Right Arm 10:01:07 HR=67 bpm, MVGK=694/83 mmhg, Resp=16 B/min 10:05:14 Reference ECG taken Assessment: Initial Case, HR=60 BPM, Rhythm=sr, LMPZ=349/86 mmhg, Chest Pain=0 Right Pulses: Devon Ped=1, Femoral=2, Radial=2 10:06:04 Left Pulses: Devon Ped=1, Femoral=2 Neurological: State=Alert, Ox3, [place] Respiration: Resp=10 B/min, SpO2=98 % 10:06:09 HR=60 bpm, KIZN=822/86 mmhg, SpO2=99.0 %, Resp=14 B/min 10:07:12 Bilateral groins and right radial prepped with 2% chlorhexidine, and draped after a 3 minut e waiting time. 10:07:51 paged 10:09:18 Pressure channel 1 zeroed. 10:10:08 MD arrived. 10:11:08 HR=64 bpm, POOR=675/87 mmhg, Resp=0 B/min 10:16:11 HR=58 bpm, KUDF=379/74 mmhg, SpO2=97.0 %, Resp=5 B/min 25 mcg FENTANYL given in lab by Jayson Melgar RN in Right Antecubital via Peripheral IV. Ordered by Adryan Macdonald 10:16:45 G. Time Out. Correct patient, correct procedure, correct physician, power injector loaded, or not loaded with contrast with 10:17:30 surgical team present. Time Out Concurred by and individual staff in procedure. 10:17:59 1 mg VERSED given in lab by Jayson Melgar RN in Right Antecubital via Peripheral IV. Ordered by Adryan Macdonald 10:18:13 Case Start 20 mL 1% XYLOCAINE given in lab by Adryan Macdonald in Right Radial via Subcutaneous. Ordere d by Torres, 10:18:14 Adryan Hay 10:18:57 Access site was Radial Artery. A SHEATH, FR6 TRANSRADIAL SLENDER 10CM FR 6 was advanced into the Fem Art (right) using the Per cutaneous 10:19:48 technique. 5 mL (Bolus) RADIAL COCKTAIL given in lab by Adryan Macdonald in Right Radial via Radial. Us ing [Solution Name]. 10:20:08 Ordered by Adryan Macdonald. 4000 U heparin, 2.5mg Verapamil, 200mcg NTG A JR 4.0 INFINITI CATHETER FR 5 was advanced over a wire. OMNIPAQUE, 350 MG, 150ML 150ML was us ed for 10:20:22 injections. 10:21:06 HR=58 bpm, DRBW=166/71 mmhg, SpO2=95 %, Resp=27 B/min Recorded Pressure: LV, HR=59, Condition=Condition 1 10:21:28 (Left Ventricle) LV 102/3/8 Recorded Pressure: LV, Ao, HR=58, Condition=Condition 1 10:21:43 (Left Ventricle) LV 103/0/7, (Aorta) Ao 100/67/81 10:22:12 The RCA was injected and visualized at various angles. OMNIPAQUE, 350 MG, 150ML 150ML used . 10:22:53 Catheter was removed A JL 3.5 INFINITI CATHETER FR 5 was advanced over a wire. OMNIPAQUE, 350 MG, 150ML 150ML was us ed for 10:23:06 injections. 10:25:48 The LCA was injected and visualized at various angles. OMNIPAQUE, 350 MG, 150ML 150ML used . 10:26:11 HR=60 bpm, TRYP=778/68 mmhg, SpO2=92 %, Resp=10 B/min 10:30:15 Catheter was removed 10:31:10 HR=62 bpm, IMZE=946/77 mmhg, SpO2=93.0 %, Resp=14 B/min A EBU 3.5 Z2 GUIDE CATHETER FR 6 was advanced over a wire. OMNIPAQUE, 350 MG, 150ML 150ML was u sed for 10:33:57 injections. 7300 units HEPARIN given in lab by Jayson Melgar RN in Right Antecubital via Peripheral IV. Orde red by Adryan Macdonald 10:34:20 G. 10:36:09 HR=55 bpm, OEWB=381/83 mmhg, SpO2=92 %, Resp=25 B/min 10:37:40 A WIRE, ASAHI PROWATER 180CM 180CM was inserted via Radial (right). 10:41:14 HR=55 bpm, MGSJ=162/75 mmhg, SpO2=94.0 %, Resp=14 B/min 10:42:47 A WIRE, ASADANII FIELDER XT 190CM 180CM was inserted via Radial (right). 10:46:13 HR=56 bpm, FWZE=012/74 mmhg, SpO2=94 %, Resp=14 B/min 10:46:32 Unable to advance Fielder XT, Wire removed 10:46:48 Activated Clotting Time Drawn 10:46:54 A WIRE, CHOICE PT 182CM 182CM was inserted via Fem Art (right). 10:51:10 HR=52 bpm, QNVO=152/76 mmhg, Resp=8 B/min 10:53:21 ACT (Normal Range 90-180) = 351 10:56:09 HR=54 bpm, CQZE=618/83 mmhg, SpO2=95.0 %, Resp=20 B/min 10:59:55 Unable to advance Choice PT wire. Wire removed. 11:01:12 HR=64 bpm, DOMN=369/86 mmhg, SpO2=95 %, Resp=20 B/min 11:03:24 A WIRE, RUNTHROUGH NS FLOPPY .014 180CM 180CM was inserted via Radial (right). 11:05:02 Dr Aguirre arrived for CV consult. 11:06:15 HR=60 bpm, XNDI=170/88 mmhg, SpO2=95.0 %, Resp=17 B/min 11:11:14 HR=62 bpm, MQCO=731/85 mmhg, SpO2=94 %, Resp=19 B/min 11:16:13 HR=62 bpm, FODY=661/85 mmhg, SpO2=95 %, Resp=16 B/min 11:19:41 Unable to wire diagonal. Interventional Wires removed. 11:20:09 The LCA was injected and visualized at various angles. OMNIPAQUE, 350 MG, 150ML 150ML used . 11:21:14 Catheter was removed over J-wire 11:21:51 HR=68 bpm, ZVKG=808/90 mmhg, SpO2=95 %, Resp=20 B/min Radial Compression Device Used. 13 mLs of air placed in BAND, RADIAL COMPRESSION TR LARGE 29 29 CM. Affected 11:25:11 hand ~O2 SATURATION~ % O2 saturation. 11:25:57 No case complications noted. 11:25:58 Case End 11:26:15 HR=63 bpm, TLYJ=937/81 mmhg, SpO2=96.0 %, Resp=15 B/min Assessment: Final Case, HR=63 BPM, Rhythm=sr, AQKU=021/81 mmhg, Chest Pain=0 Right Pulses: Devon Ped=1, Femoral=2, Radial=2 11:30:54 Left Pulses: Devon Ped=1, Femoral=2 Neurological: State=Alert, Ox3, [place] Respiration: Resp=15 B/min, SpO2=96 % 11:30:58 Cine recording checked. 11:31:04 Patient moved to stretcher 11:31:59 Bedside Report will be given. 11:32:36 Patient transported to DOCU 11:49:54 LAD Prox Restenosed. 11:51:09 [ Select Procedure ] End Study - Contrast Media Used In Study Contrast Total Opened (mL) Total Used (mL) Total Wasted (mL) Omnipaque 130 130 0 End Study - Maximum Contrast Load Max Contrast Load (mL) 569.4 End Study - Radiation Exposure Fluoro Time (minutes) 31.1 End Study - Sheaths Sheaths Pulled By Sheath Hold Time (min) Adryan Macdonald End Study - Patient Disposition Complications Transferred To Interventional Outcome No Telemetry Bed unsuccessful
--- NOTE | 2016-12-31 13:30 | PD.CARD.PN ---
Subjective Subjective Remarks Post-cath MVCAD, for consideration of CABG No chest pain/SOB Objective Medications Current Medications Medications (Trade) Dose Ordered Sig/Heri Route Start Time Stop Time Status Last Admin (NS Flush) 2 ml UNSCH PRN IVF 12/28/16 10:00 (Neurontin) 300 mg TID PO 12/28/16 13:00 12/31/16 08:28 (Pravachol) 80 mg HS PO 12/28/16 21:00 12/30/16 20:25 (NS Flush) 2 ml UNSCH PRN IV FLUSH 12/28/16 11:45 (NS Flush) 2 ml BID IV FLUSH 12/28/16 21:00 12/31/16 08:28 (Tylenol) 500 mg Q4H PRN PO 12/28/16 11:45 (Morphine Inj) 2 mg Q4H PRN IV PUSH 12/28/16 11:45 12/31/16 01:35 (Zofran Inj) 4 mg Q6H PRN IV PUSH 12/28/16 11:45 (Pepcid) 20 mg BID PO 12/29/16 09:00 12/31/16 08:29 (Nitroglycerin 2% Oint) 1 inch Q6HR TOP 12/28/16 12:00 12/31/16 05:46 (Nitrostat Sl) 0.4 mg Q5M PRN SL 12/28/16 11:45 (Restoril) 15 mg HS PRN PO 12/28/16 11:45 (Tenormin) 25 mg DAILY PO 12/30/16 09:00 12/31/16 08:32 Heparin Sodium/ Dextrose 250 ml @ 10 mls/hr TITRATE PRN IV 12/29/16 17:00 12/30/16 10:38 (Aspirin Chew) 81 mg DAILY CHEW 01/01/17 09:00 Vital Signs / I&O Vital Signs Date Time Temp Pulse Resp B/P (MAP) Pulse Ox O2 Delivery O2 Flow Rate FiO2 12/31/16 08:50 72 12/31/16 07:14 96.0 70 20 157/100 (119) 94 12/31/16 03:26 97.5 89 20 140/81 (100) 99 12/30/16 23:09 97.6 65 18 129/82 (98) 96 12/30/16 19:51 97.4 68 18 127/82 (97) 96 12/30/16 16:30 59 12/30/16 16:23 97.9 64 18 124/60 (81) 96 I/O 12/30/16 12/30/16 12/30/16 12/31/16 12/31/16 12/31/16 06:59 14:59 22:59 06:59 14:59 22:59 Intake Total 250 ml Balance 250 ml Intake IV Total 250 ml Physical Exam GENERAL: NAD, AAOx3 SKIN: Warm and dry. HEAD: Atraumatic. Normocephalic. EYES: Pupils equal and round. No scleral icterus. No injection or drainage. ENT: No nasal bleeding or discharge. Mucous membranes pink and moist. NECK: Trachea midline. No JVD. CARDIOVASCULAR: Regular rate and rhythm. RESPIRATORY: No accessory muscle use. Clear to auscultation. Breath sounds equal bilaterally. GASTROINTESTINAL: Abdomen soft, non-tender, nondistended. Hepatic and splenic margins not palpable. MUSCULOSKELETAL: Extremities without clubbing, cyanosis, or edema. No obvious deformities. NEUROLOGICAL: Awake and alert. No obvious cranial nerve deficits. Motor grossly within normal limits. Five out of 5 muscle strength in the arms and legs. Normal speech. PSYCHIATRIC: Appropriate mood and affect; insight and judgment normal. Laboratory Laboratory Tests Test 12/31/16 07:29 Activated Partial Thromboplast Time 48.3 SEC Assessment and Plan Problem List: (1) Chest pain ICD Codes: R07.9 - Chest pain, unspecified Status: Acute (2) Multiple vessel coronary artery disease ICD Codes: I25.10 - Atherosclerotic heart disease of [place] coronary artery without angina pectoris (3) HTN (hypertension) ICD Codes: I10 - Essential (primary) hypertension (4) HLD (hyperlipidemia) ICD Codes: E78.5 - Hyperlipidemia, unspecified Assessment and Plan 1) MVCAD with complex bifurcation of the proximal LAD and diagonal Plan for possible CABG Saturday with Dr. Aguirre 2) Restarted on heparin drip 3) Con't ASA/BB Add statin therapy 4) Echo pre-CABG pending Problem Qualifiers (1) Chest pain: Qualified Codes: R07.9 - Chest pain, unspecified Adryan Macdonald DO Dec 31, 2016 13:30
--- NOTE | 2016-12-31 16:42 | MA ---
cc: ADRYAN BETTS DO DATE 12/31/2016 PROCEDURE Left heart catheterization, coronary angiogram, moderate sedation 68 minutes. PREPROCEDURE DIAGNOSIS Unstable angina, coronary artery disease, abnormal stress test. POSTPROCEDURE DIAGNOSIS Multivessel coronary artery disease. MEDICATIONS 1. Nitro 200 micrograms. 2. Verapamil 2.5 mg. 3. Heparin 11,300 units. 4. Versed 0.5 mg. 5. Fentanyl 25 micrograms. CONTRAST USED 130 mL. FLUOROSCOPY 31.1 minutes ANESTHESIA Moderate sedation 68 minutes ESTIMATED BLOOD LOSS 10 mL PROCEDURAL SUMMARY Silvestre Jade is a pleasant 56-year-old male who presented with unstable angina to the [facility]. During his workup he was found to have an abnormal stress test and recommended cardiac catheterization. Risks, benefits and alternatives were explained to him and he consented as such. He was brought to the lab and prepped in the usual sterile fashion. Right radial artery was accessed using a modified Seldinger technique. I placed a 5/6 Nigerien slender sheath. This was easily aspirated and flushed. A JR-4 was advanced over a J-wire to the ascending aorta and across the aortic valve for measurement of left ventricular pressures. This was pulled back across the aortic valve showing no significant gradient of aortic stenosis. JR-4 was used for selective angiography of the right coronary artery. This was exchanged out for a JL-3.5 which was used for selective angiography of the left coronary artery system. Please see notes below for intervention. A radial band was placed over the arteriotomy site for hemostasis. The patient left the mill laborer cardiovascularly stable. FINDINGS Left main. Normal size vessel with adequate reflux. It trifurcates into an LAD ramus and circumflex. LAD. Normal-size vessel with a 99% in-stent restenosis in the proximal portion. At this disease there is also a 99% ostial diagonal. The distal portion of the LAD has no significant disease. Ramus. Moderate size vessel with no significant disease. Left circumflex. Normal size vessel with mild luminal irregularities. It gives off one obtuse marginal and a posterior lateral branch with no significant disease. Right coronary artery. Normal-size vessel with two 10% lesions in the proximal and midportion but otherwise no significant disease. It is a dominant vessel by nature. LVEDP 7. INTERVENTION Mr. Jade had significant chest pain and abnormal stress test in the anterior apical portion and because of this I felt that it was reasonable to attempt to fix his LAD and diagonal, although I was concerned with the complexity of the lesion. An EBU 3.5 guide was engaged in the left main. Heparin was used as an additional an anticoagulant. A K[employer] wire was advanced into the distal LAD for protection of the LAD. I attempted to wire the diagonal with a Fielder XT, PT Choice floppy, and a run through floppy wire. I was unable to advance into the ostium of the diagonal, most likely due to the significance of the disease, the stent, and most likely the angle of its takeoff as contrast appears to flow into the vessel at a greater than 90 degrees angle. I asked Dr. Aguirre to come evaluate the coronary anatomy as well as the patient and he agrees that he would be an acceptable candidate for two-vessel bypass of the LAD and diagonal if possible. Diagonal is a large enough vessel that I was concerned for losing it if I was unable to wire it. Wires were removed and final angiography shows no disruption of the coronary anatomy with flow down the diagonal and LAD. IMPRESSION 1. Unstable angina. 2. Abnormal stress test. 3. Coronary artery disease with in-stent restenosis of the proximal LAD stent as well as the ostial diagonal disease, complicated by complex bifurcation. 4. Hypertension. 5. Hyperlipidemia. RECOMMENDATIONS 1. Mr. Jade will be recommended consideration of coronary artery bypass grafting due to the complexity of his coronary artery disease. 2. I discussed this with Dr. Aguirre and he will plan on possibly doing this later in the week depending on testing. 3. We will check a 2-D echo to look at his overall left ventricular function, cardiac structure and possible valvopathies. 4. He will be placed on a heparin drip due to the significance of his coronary artery disease. 5. This was discussed with the patient and his postprocedure and understands the consideration of coronary artery bypass grafting. 6. Further recommendations will be made based on the hospital course. Thank you for allowing me to see Silvestre Jade. If there are any questions please do not hesitate to call. Adryan Betts DO VGP/KK /3:38 PM /4:21 PM
--- NOTE | 2016-12-31 16:46 | PD.CAR.PN ---
CVT Progress Note Subjective/Hospital Course: sts data discussed with pt RISK SCORES About the STS Risk Calculator Procedure: CAB Only Risk of Mortality: 0.319% Morbidity or Mortality: 5.484% Long Length of Stay: 1.415% Short Length of Stay: 76.398% Permanent Stroke: 0.273% Prolonged Ventilation: 3.691% DSW Infection: 0.202% Renal Failure: 0.731% Reoperation: 2.659% Objective: Vital Signs Date Time Temp Pulse Resp B/P (MAP) Pulse Ox O2 Delivery O2 Flow Rate FiO2 12/31/16 15:50 97.7 56 18 120/80 (93) 94 12/31/16 15:46 72 12/31/16 15:46 98.0 56 18 120/80 (93) 94 12/31/16 14:35 97.7 49 18 115/75 (88) 98 12/31/16 14:10 97.7 47 18 121/77 (92) 98 12/31/16 13:35 97.7 49 18 133/79 (97) 98 12/31/16 13:07 97.6 50 18 101/60 (74) 98 12/31/16 08:50 72 12/31/16 07:14 96.0 70 20 157/100 (119) 94 12/31/16 03:26 97.5 89 20 140/81 (100) 99 12/30/16 23:09 97.6 65 18 129/82 (98) 96 12/30/16 19:51 97.4 68 18 127/82 (97) 96 Labs: Laboratory Tests Test 12/31/16 07:29 Activated Partial Thromboplast Time 48.3 SEC (24.3-30.1) Result Diagram: 12/28/1650 12/28/1650 (1) Chest pain (2) Multiple vessel coronary artery disease (3) HTN (hypertension) (4) HLD (hyperlipidemia) Problem Qualifiers (1) Chest pain: Qualified Codes: R07.9 - Chest pain, unspecified Lesley Colon Dec 31, 2016 16:46
[2016-12-31] MEDS ORDERED: INSULIN REGULAR (IV INFUSION) 100 UNITS in SODIUM CHLORIDE 0.9% INJ 99 ML IV PRN (17:00)
[2016-12-31] MEDS ORDERED: ceFAZolin 2 GM PREMIX 50 ML IV SCH (17:00)
[2016-12-31] MEDS ORDERED: CEFAZOLIN INJ 500 MG in SODIUM CHLORIDE 0.9% IRR BTL 500 ML IRRIGATION SCH (17:00)
[2016-12-31] MEDS ORDERED: SODIUM CHLORIDE 0.9% FLUSH 10 ML FLUSH IV FLUSH PRN (17:00)
[2016-12-31] MEDS ORDERED: CHLORHEXIDINE GLUCONATE 4% SOLN 120 ML BTL TOPICAL SCH (17:00)
[2016-12-31] MEDS ORDERED: METOPROLOL TARTRATE 25 MG TAB PO SCH (17:00)
[2016-12-31] MEDS ORDERED: PAPAVERINE INJ 60 MG, NITROGLYCERIN INJ 100 MCG, DILTIAZEM INJ 100 MG in SODIUM CHLORID... IRRIGATION SCH (17:00)
[2016-12-31] MEDS ORDERED: EPINEPHrine HCL (1:10,000) 1 MG/10 ML SYRINGE ONE (17:39)
[2016-12-31] MEDS ORDERED: LIDOCAINE HCL 2% 100 MG/5 ML SYRINGE ONE (17:39)
[2016-12-31] MEDS ORDERED: ATROPINE SULFATE 1 MG/10 ML SYRINGE ONE (17:39)
[2016-12-31 17:43] LABS: APTT (PATIENT) 111.5 SEC (24.3-30.1)
--- NOTE | 2016-12-31 17:45 | ECHRPT ---
Indication: MVCAD for CABG CONCLUSIONS Poor echocardiogenic windows The left ventricular systolic function is low normal with an estimated ejection fraction in the rang e of 50- 55%. Normal left ventricular size. [id number] mitral valve regurgitation. No aortic valve regurgitation. No aortic valve stenosis. There is mild tricuspid valve regurgitation. The pulmonary valve is not well visualized. BP: / HR: Rhythm: MEASUREMENTS (Male / Female) Normal Values Technical Quality:Very technically difficult study 2D ECHO LV Diastolic Diameter PLAX 4.1 cm 4.2 - 5.9 / 3.9 - 5.3 cm LV Systolic Diameter PLAX 3.2 cm IVS Diastolic Thickness 1.6 cm 0.6 - 1.0 / 0.6 - 0.9 cm LVPW Diastolic Thickness 1.0 cm 0.6 - 1.0 / 0.6 - 0.9 cm LV Relative Wall Thickness 0.6 RV Internal Dim ED PLAX 2.8 cm M-MODE Aortic Root Diameter MM 3.7 cm LA Systolic Diameter MM 2.9 cm LA Ao Ratio MM 0.8 AV Cusp Separation MM 1.8 cm DOPPLER Mitral E Point Velocity 80.9 cm/s Mitral A Point Velocity 61.2 cm/s Mitral E to A Ratio 1.3 LV E' Lateral Velocity 9.3 cm/s Mitral E to LV E' Lateral Ratio 8.7 LV E' Septal Velocity 7.0 cm/s Mitral E to LV E' Septal Ratio 11.5 FINDINGS LEFT VENTRICLE The left ventricular systolic function is low normal with an estimated ejection fraction in the rang e of 50- 55%. Normal left ventricular size. RIGHT VENTRICLE Normal right ventricular size and systolic function. LEFT ATRIUM The left atrial size is normal. RIGHT ATRIUM The right atrial size is normal. ATRIAL SEPTUM Normal atrial septal thickness without atrial level shunting by limited color doppler interrogation. AORTA The aortic root and proximal ascending aorta are normal in size on limited imaging. MITRAL VALVE Structurally normal mitral valve. Jnnpx-gg-[id number] mitral valve regurgitation. AORTIC VALVE Trileaflet aortic valve. No aortic valve regurgitation. No aortic valve stenosis. TRICUSPID VALVE Structurally normal tricuspid valve. There is mild tricuspid valve regurgitation. PULMONARY VALVE The pulmonary valve is not well visualized. VESSELS The inferior vena cava is normal in size. PERICARDIUM No pericardial effusion. Bhupinder Martinez MD (Electronically Signed) Final Date:31 December 2016 17:44
--- NOTE | 2016-12-31 18:00 | RADRPT ---
EXAM DATE/TIME: 12/31/2016 17:50 [facility] COMPARISON: CHEST SINGLE AP, December 28, 2016, 9:53. INDICATIONS : Evaluate for pneumothorax, pneumonia and communicable diseases. Pre-op for CABG. MEDICAL HISTORY : Myocardial infarction. SURGICAL HISTORY : Coronary artery stent. ENCOUNTER: Subsequent ACUITY: 3 days PAIN SCORE: 0/10 LOCATION: Bilateral chest FINDINGS: PA and lateral views of the chest demonstrate the lungs to be symmetrically aerated without evidence of mass, infiltrate or effusion. The cardiomediastinal contours are unremarkable. Osseous structure s are intact. CONCLUSION: No acute disease. No significant change has occurred. Андрей Garcia MD on December 31, 2016 at 17:58 Board Certified Radiologist. This report was verified electronically.
--- NOTE | 2016-12-31 19:48 | RADRPT ---
EXAM DATE/TIME: 12/31/2016 19:12 [facility] COMPARISON: No previous studies available for comparison. INDICATIONS : Preop cardiac surgery. MEDICAL HISTORY : Myocardial infarction. Hypercholesterolemia. Coronary artery disease. HTN. Dyspnea. Sciatica. Restle ss leg syndrome. Tobacco use. SURGICAL HISTORY : Coronary artery stent. Cardiac cath. ENCOUNTER: Initial ACUITY: 1 day PAIN SCORE: 0/10 LOCATION: Bilateral leg. TECHNIQUE: Venous ultrasound of the left and right leg was performed from the inguinal ligament to the proximal calf. Real-time, color Doppler and spectral tracing, compression and augmentation techniques were us ed. FINDINGS: RIGHT LEG: There is normal compressibility of the deep venous system from the inguinal region to the proximal ca lf. No echogenic clot is seen in the lumen of the common femoral, femoral, popliteal, and posterior tibial veins. There is a normal response of the venous system to proximal and distal augmentation an d respiration. Iliac vein patent LEFT LEG: There is normal compressibility of the deep venous system from the inguinal region to the proximal ca lf. No echogenic clot is seen in the lumen of the common femoral, femoral, popliteal, and posterior tibial veins. There is a normal response of the venous system to proximal and distal augmentation an d respiration. Iliac vein patent CONCLUSION: Normal examination. Андрей Garcia MD on December 31, 2016 at 19:46 Board Certified Radiologist. This report was verified electronically.
--- NOTE | 2016-12-31 19:49 | RADRPT ---
EXAM DATE/TIME: 12/31/2016 18:53 [facility] COMPARISON: No previous studies available for comparison. INDICATIONS : Preop cardiac surgery. MEDICAL HISTORY : Myocardial infarction. Hypercholesterolemia. Coronary artery disease. HTN. Dyspnea. Sciatica. Restl ess leg syndrome. Tobacco use. SURGICAL HISTORY : Coronary artery stent. Cardiac cath. ENCOUNTER: Initial ACUITY: 1 day PAIN SCORE: 0/10 LOCATION: Bilateral neck PEAK SYSTOLIC VELOCITIES (cm/sec): ICA/CCA RATIO: Right: 0.9 Left: 0.8 ICA: Right: 70.9 Left: 59.1 CCA: Right: 79.8 Left: 73.0 ECA: Right: 77.3 Left: 88.6 VERTEBRAL: Right: 33.7 antegrade Left: 46.8 antegrade Elevated flow velocities and ICA/CCA ratios have been found to correlate with increased degrees of vessel stenosis, calculated as percentage of diameter relative to a normal segment of distal ICA/CCA FINDINGS: RIGHT CAROTID: No significant stenosis is visualized. The waveforms are within normal limits. LEFT CAROTID: No significant stenosis is visualized. The waveforms are within normal limits. VERTEBRAL ARTERIES: Antegrade flow is seen in both vertebral arteries. MISCELLANEOUS: None. CONCLUSION: Normal examination other than minimal soft plaque . Андрей Garcia MD on December 31, 2016 at 19:46 Board Certified Radiologist. This report was verified electronically.
[2016-12-31] MEDS: PRAVASTATIN SOD 80 MG TAB PO SCH (21:54)
[2016-12-31 22:56] LABS: BLOOD, URINE NEG (NEG); GLUCOSE,URINE NEG (NEG); KETONE, URINE NEG (NEG); NITRITE,URINE NEG (NEG); PH, URINE 6.5 (5.0-8.5); URINE COLOR YELLOW (YELLW/STRAW)
[2016-12-31 22:59] LABS: COMMENT (UR) CULT NOT INDICATED; CULTURE IF INDICATED CULT NOT INDICATED
--- NOTE | 2016-12-31 23:08 | RADRPT ---
EXAM DATE/TIME: 12/31/2016 19:19 [facility] COMPARISON: No previous studies available for comparison. INDICATIONS : Preop cardiac surgery. MEDICAL HISTORY : Myocardial infarction. Hypercholesterolemia. Coronary artery disease. HTN. Dyspnea. Sciatica. Restle ss leg syndrome. Tobacco use. SURGICAL HISTORY : Coronary artery stent. Cardiac cath. ENCOUNTER: Initial ACUITY: 1 day PAIN SCORE: 0/10 LOCATION: Bilateral leg. GREATER SAPHENOUS VEIN THIGH: PROXIMAL: Right 6 mm Left 6 mm MID: Right 3 mm Left 4 mm DISTAL: Right 2 mm Left 2 mm CALF: PROXIMAL: Right 1 mm Left 2 mm MID: Right 2 mm Left 1 mm DISTAL: Right 2 mm Left 2 mm FINDINGS: The venous system of the lower extremities are patent by color Doppler imaging. Measurements of the leg veins (in mm) are listed above. CONCLUSION: 1. Venous mapping as above Patrice Barrett MD on December 31, 2016 at 23:06 Board Certified Radiologist. This report was verified electronically.
[2017-01-01] VITALS (30 sets, daily range): BP systolic 109–122; BP diastolic 75–85; PULSE 51–80; RESP 16–18; TEMP 97.7–98.5; O2SAT 92–100
[2017-01-01 05:06] LABS: AUTOMATED NEUTROPHIL # 3.6 TH/MM3 (1.8-7.7); BASOPHIL % 0.4 % (0.0-2.0); EOSINOPHIL # 0.3 TH/MM3 (0-0.4); EOSINOPHIL % 3.8 % (0.0-4.0); HEMATOCRIT 41.5 % (39.0-51.0); HEMO FLAGS DIFF FINAL; LYMPH % 40.5 % (9.0-44.0); LYMPHOCYTE # 3.2 TH/MM3 (1.0-4.8); MEAN CELL VOLUME 91.4 FL (80.0-100.0); MEAN CORPUSCULAR HEMOGLOBIN 30.9 PG (27.0-34.0); MEAN CORPUSCULAR HGB CONC 33.8 % (32.0-36.0); MONO % 10.4 % (0.0-8.0); NEUT % 44.9 % (16.0-70.0); PLATELET COUNT 270 TH/MM3 (150-450); RED BLOOD COUNT 4.54 MIL/MM3 (4.50-5.90); RED CELL DISTRIBUTION WIDTH 14.7 % (11.6-17.2)
[2017-01-01 05:21] LABS: APTT (PATIENT) 49.9 SEC (24.3-30.1)
[2017-01-01 05:29] LABS: ANION GAP 7 MEQ/L (5-15); AST (GOT) 29 U/L (15-37); BLOOD UREA NITROGEN 14 MG/DL (7-18); CHLORIDE 107 MEQ/L (98-107); GLOMERULAR FILTRATION RATE 83 ML/MIN (>89); MAGNESIUM 2.1 MG/DL (1.5-2.5); SODIUM (NA) 140 MEQ/L (136-145)
[2017-01-01 05:33] LABS: ALKALINE PHOSPHATASE 60 U/L (45-117); ALT (GPT) 41 U/L (12-78); TOTAL BILIRUBIN ADULT 0.4 MG/DL (0.2-1.0)
[2017-01-01] MEDS: NITROGLYCERIN 2% OINT 1 GM PACKET TOP SCH ×5 (06:00→23:34)
--- NOTE | 2017-01-01 07:16 | HHI.PR ---
Subjective Remarks resting comfortably with no distress. no chest pain or sob. no new complaints. Objective Vitals Vital Signs Date Time Temp Pulse Resp B/P (MAP) Pulse Ox O2 Delivery O2 Flow Rate FiO2 01/01/17 06:04 76 01/01/17 05:32 55 01/01/17 04:29 98.0 58 16 109/76 (87) 100 01/01/17 04:08 56 01/01/17 03:49 92 01/01/17 03:02 56 01/01/17 02:04 54 01/01/17 01:34 55 01/01/17 00:13 68 12/31/16 23:20 97.9 62 16 97/69 (78) 96 12/31/16 23:18 64 12/31/16 22:15 64 12/31/16 21:15 73 12/31/16 20:17 62 12/31/16 20:17 97.8 58 16 124/75 (91) 97 12/31/16 20:00 97.8 58 16 124/74 (91) 97 12/31/16 19:24 68 12/31/16 15:50 97.7 56 18 120/80 (93) 94 12/31/16 15:46 72 12/31/16 15:46 98.0 56 18 120/80 (93) 94 12/31/16 14:35 97.7 49 18 115/75 (88) 98 12/31/16 14:10 97.7 47 18 121/77 (92) 98 12/31/16 13:35 97.7 49 18 133/79 (97) 98 12/31/16 13:07 97.6 50 18 101/60 (74) 98 12/31/16 08:50 72 I/O 12/31/16 12/31/16 12/31/16 01/01/17 01/01/17 01/01/17 06:59 14:59 22:59 06:59 14:59 22:59 Intake Total 480 ml Output Total 1250 ml Balance -770 ml Intake Oral 480 ml Output Urine Total 1250 ml Result Diagram: 01/01/17 0415 01/01/17 0420 Imaging Last Impressions Lower Extremity Ultrasound 12/31/16 0000 Signed Impressions: Service Date/Time: Saturday, December 31, 2016 19:19 - CONCLUSION: 1. Venous mapping as above Patrice Barrett MD Chest X-Ray 12/31/16 0000 Signed Impressions: Service Date/Time: Saturday, December 31, 2016 17:50 - CONCLUSION: No acute disease. No significant change has occurred. Андрей Garcia MD Carotid Artery Ultrasound 12/31/16 0000 Signed Impressions: Service Date/Time: Saturday, December 31, 2016 18:53 - CONCLUSION: Normal examination other than minimal soft plaque . Андрей Garcia MD Myocardial Perfusion Scan Nuc Med 12/29/16 0000 Signed Impressions: Service Date/Time: Thursday, December 29, 2016 10:30 - CONCLUSION: 1. Moderate-sized mild severity reversible defect involving the apical segment of the anterior wall with fixed defect in the apex. Ischemia is not excluded. RISK CATEGORY: Intermediate (1-3%% Annual Mortality Rate) Patrice Barrett MD Objective Remarks GENERAL: This is a well-nourished, well-developed patient, in no apparent distress. CARDIOVASCULAR:bradycardic and regular rhythm without murmurs, gallops, or rubs. RESPIRATORY: Clear to auscultation. Breath sounds equal bilaterally. No wheezes , rales, or rhonchi. GASTROINTESTINAL: Abdomen soft, non-tender, nondistended. Normal, active bowel sounds MUSCULOSKELETAL: Extremities without clubbing, cyanosis, or edema. NEURO: Alert & Oriented x4 to person, place, time, situation. Moves all ext x4 Procedures cardiac cath. Medications and IVs Current Medications Sodium Chloride (NS Flush) 2 ml UNSCH PRN IVF FLUSH AFTER USING IV ACCESS; Start 12/28/16 at 10:00 Atenolol (Tenormin) 50 mg DAILY PO ; Start 12/29/16 at 09:00; Stop 12/29/16 at 15:24; Status DC Gabapentin (Neurontin) 300 mg TID PO Last administered on 12/31/16 18:22; Start 12/28/16 at 13:00 Pravastatin Sodium (Pravachol) 80 mg HS PO Last administered on 12/31/16 21: 54; Start 12/28/16 at 21:00 Sodium Chloride (NS Flush) 2 ml UNSCH PRN IV FLUSH FLUSH AFTER USING IV ACCESS ; Start 12/28/16 at 11:45 Sodium Chloride (NS Flush) 2 ml BID IV FLUSH Last administered on 12/31/16 21 :55; Start 12/28/16 at 21:00 Acetaminophen (Tylenol) 500 mg Q4H PRN PO HEADACHE; Start 12/28/16 at 11:45 Morphine Sulfate (Morphine Inj) 2 mg Q4H PRN IV PUSH PAIN SCALE 8 TO 10 Last administered on 12/31/16 01:35; Start 12/28/16 at 11:45 Ondansetron HCl (Zofran Inj) 4 mg Q6H PRN IV PUSH NAUSEA; Start 12/28/16 at 11 :45 Famotidine (Pepcid) 20 mg BID PO Last administered on 12/31/16 21:54; Start 12/29/16 at 09:00 Nitroglycerin (Nitroglycerin 2% Oint) 1 inch Q6HR TOP Last administered on 18:22; Start 12/28/16 at 12:00 Nitroglycerin (Nitrostat Sl) 0.4 mg Q5M PRN SL CHEST PAIN; Start 12/28/16 at 11:45 Aspirin (Aspirin) 325 mg DAILY PO Last administered on 12/31/16 08:28; Start 12/29/16 at 09:00; Stop 12/31/16 at 11:52; Status DC Temazepam (Restoril) 15 mg HS PRN PO INSOMNIA; Start 12/28/16 at 11:45 Regadenoson (Lexiscan Inj) 0.4 mg STK-MED ONCE .ROUTE Last administered on 10:58; Start 12/29/16 at 10:58; Stop 12/29/16 at 10:59; Status DC Atenolol (Tenormin) 25 mg DAILY PO Last administered on 12/31/16 08:32; Start 12/30/16 at 09:00 Heparin Sodium/ Dextrose 250 ml @ 10 mls/hr TITRATE PRN IV Ordered parameters Last administered on 12/30/16 10:38; Start 12/29/16 at 17:00 Pneumococcal Polyvalent Vaccine (Pneumovax-23 Inj) 25 mcg ONCE ONCE IM ; Start 12/30/16 at 10:00; Stop 12/30/16 at 10:01; Status DC Heparin Sodium (Porcine) (Heparin Inj) 4,000 units NOW ONCE IV Last administered on 12/29/16 18:08; Start 12/29/16 at 18:00; Stop 12/29/16 at 18 :01; Status DC Cyclobenzaprine HCl (Flexeril) 5 mg ONCE ONCE PO Last administered on 02:58; Start 12/31/16 at 02:45; Stop 12/31/16 at 02:48; Status DC Heparin Sodium/ Sodium Chloride 1,500 ml @ As Directed STK-MED ONCE .ROUTE Last administered on 12/31/16 10:03; Start 12/31/16 at 10:03; Stop 12/31/16 at 10:04; Status DC Midazolam HCl (Versed Inj) 2 mg STK-MED ONCE .ROUTE Last administered on 10:17; Start 12/31/16 at 10:03; Stop 12/31/16 at 10:04; Status DC Verapamil HCl (Isoptin Inj) 5 mg STK-MED ONCE .ROUTE ; Start 12/31/16 at 10:03 ; Stop 12/31/16 at 10:04; Status DC Heparin Sodium (Porcine) (Heparin Inj) 10,000 units STK-MED ONCE .ROUTE Last administered on 12/31/16 10:34; Start 12/31/16 at 10:03; Stop 12/31/16 at 10 :04; Status DC Nitroglycerin 5 ml @ As Directed STK-MED ONCE .ROUTE ; Start 12/31/16 at 10:03 ; Stop 12/31/16 at 10:04; Status DC Fentanyl Citrate (fentaNYL INJ) 100 mcg STK-MED ONCE .ROUTE Last administered on 12/31/16 10:16; Start 12/31/16 at 10:04; Stop 12/31/16 at 10:05; Status DC Heparin Sodium (Porcine) (Heparin Inj) 10,000 units STK-MED ONCE .ROUTE ; Start 12/31/16 at 10:26; Stop 12/31/16 at 10:27; Status DC Aspirin (Aspirin Chew) 81 mg DAILY CHEW ; Start 01/01/17 at 09:00 Iohexol (OMNIPAQUE 350 INJ (Blending Coordinator)) 100 ml STK-MED ONCE OTHER ; Start at 11:06; Stop 12/31/16 at 12:55; Status DC Iohexol (OMNIPAQUE 350 INJ (Blending Coordinator)) 50 ml STK-MED ONCE OTHER ; Start at 11:06; Stop 12/31/16 at 12:55; Status DC Sodium Chloride (NS Flush) 2 ml BID IV FLUSH ; Start 12/31/16 at 21:00 Sodium Chloride (NS Flush) 2 ml UNSCH PRN IV FLUSH FLUSH AFTER USING IV ACCESS ; Start 12/31/16 at 17:00 Papaverine HCl 60 mg/Nitroglycerin 100 mcg/Diltiazem HCl 100 mg/Sodium Chloride 100 ml @ 0 mls/hr APPLIED MARINE PHYSICS PROFESSOR IRRIGATION ; Start 12/31/16 at 17:00; Stop at 16:59 Cefazolin Sodium 500 mg/Sodium Chloride 505 ml @ 0 mls/hr APPLIED MARINE PHYSICS PROFESSOR IRRIGATION ; Start 12/31/16 at 17:00; Stop 01/07/17 at 16:59 Cefazolin Sodium/ Dextrose 50 ml @ 150 mls/hr APPLIED MARINE PHYSICS PROFESSOR IV ; Start 12/31/16 at 17:00; Stop 01/07/17 at 16:59 Metoprolol Tartrate (Lopressor) 12.5 mg APPLIED MARINE PHYSICS PROFESSOR PO ; Start 12/31/16 at 17:00; Stop 01/07/17 at 16:59 Chlorhexidine Gluconate (Hibiclens 4% Top Soln) 1 applic APPLIED MARINE PHYSICS PROFESSOR TOPICAL ; Start 12/31/16 at 17:00; Stop 01/07/17 at 16:59 Insulin Human Regular 100 units/ Sodium Chloride 100 ml @ 3 mls/hr TITRATE PRN IV for blood glucose control; Start 12/31/16 at 17:00; Stop 01/07/17 at 16:59 Atropine Sulfate (Atropine Inj) 1 mg STK-MED ONCE .ROUTE ; Start 12/31/16 at 17 :39; Stop 12/31/16 at 17:40; Status DC Epinephrine HCl (EPINEPHrine (1:10,000) INJ) 1 mg STK-MED ONCE .ROUTE ; Start 12/31/16 at 17:39; Stop 12/31/16 at 17:40; Status DC Lidocaine HCl (Xylocaine 2% Inj) 100 mg STK-MED ONCE .ROUTE ; Start 12/31/16 at 17:39; Stop 12/31/16 at 17:40; Status DC A/P Assessment and Plan A/P - chest pain with abnormal stress test and history of CAD/ stent placement cardiac enzymes negative- continue aspirin, BB and statin started on heparin drip- echo with EF 50%. s/p cardiac cath with Coronary artery disease with in-stent restenosis of the proximal LAD stent as well as the ostial diagonal disease, complicated by complex bifurcation. CT surgery consulted for CABG. -hypertension; on Atenolol- decreased the dose due to bradycardia- continue to monitor -DVT prophylaxis- on Heparin drip. Discharge Planning plan for CABG- per CT surgery. Nando Gómez MD Jan 01, 2017 07:16
[2017-01-01 07:51] LABS: HDL CHOLESTEROL 39.9 MG/DL (40.0-60.0)
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
[2017-01-01] MEDS: GABAPENTIN 300 MG CAP PO SCH ×3 (09:24→18:26)
[2017-01-01] MEDS: ASPIRIN 81 MG CHEW TAB CHEW SCH (09:24)
[2017-01-01] MEDS: FAMOTIDINE 20 MG TAB PO SCH ×2 (09:24→20:05)
[2017-01-01] MEDS: ATENOLOL 25 MG TAB PO SCH (09:47)
[2017-01-01] MEDS: HEPARIN 25,000 UNITS/D5W 250ML IV PRN (12:09)
--- NOTE | 2017-01-01 16:06 | PD.CARD.PN ---
Subjective Subjective Remarks Patient was seen late morning [facility], for consideration of CABG No chest pain/SOB, doing well Objective Medications Current Medications Medications (Trade) Dose Ordered Sig/Heri Route Start Time Stop Time Status Last Admin (NS Flush) 2 ml UNSCH PRN IVF 12/28/16 10:00 (Neurontin) 300 mg TID PO 12/28/16 13:00 01/01/17 13:18 (Pravachol) 80 mg HS PO 12/28/16 21:00 12/31/16 21:54 (NS Flush) 2 ml UNSCH PRN IV FLUSH 12/28/16 11:45 (NS Flush) 2 ml BID IV FLUSH 12/28/16 21:00 12/31/16 21:55 (Tylenol) 500 mg Q4H PRN PO 12/28/16 11:45 (Morphine Inj) 2 mg Q4H PRN IV PUSH 12/28/16 11:45 12/31/16 01:35 (Zofran Inj) 4 mg Q6H PRN IV PUSH 12/28/16 11:45 (Pepcid) 20 mg BID PO 12/29/16 09:00 01/01/17 09:24 (Nitroglycerin 2% Oint) 1 inch Q6HR TOP 12/28/16 12:00 01/01/17 13:18 (Nitrostat Sl) 0.4 mg Q5M PRN SL 12/28/16 11:45 (Restoril) 15 mg HS PRN PO 12/28/16 11:45 (Tenormin) 25 mg DAILY PO 12/30/16 09:00 01/01/17 09:47 Heparin Sodium/ Dextrose 250 ml @ 10 mls/hr TITRATE PRN IV 12/29/16 17:00 01/01/17 12:09 (Aspirin Chew) 81 mg DAILY CHEW 01/01/17 09:00 01/01/17 09:24 (NS Flush) 2 ml BID IV FLUSH 12/31/16 21:00 (NS Flush) 2 ml UNSCH PRN IV FLUSH 12/31/16 17:00 Papaverine HCl 60 mg/Nitroglycerin 100 mcg/Diltiazem HCl 100 mg/Sodium Chloride 100 ml @ 0 mls/hr SSRS REPORT DEVELOPER IRRIGATION 12/31/16 17:00 01/07/17 16:59 Cefazolin Sodium 500 mg/Sodium Chloride 505 ml @ 0 mls/hr SSRS REPORT DEVELOPER IRRIGATION 12/31/16 17:00 01/07/17 16:59 Cefazolin Sodium/ Dextrose 50 ml @ 150 mls/hr SSRS REPORT DEVELOPER IV 12/31/16 17:00 01/07/17 16:59 (Lopressor) 12.5 mg SSRS REPORT DEVELOPER PO 12/31/16 17:00 01/07/17 16:59 (Hibiclens 4% Top Soln) 1 applic SSRS REPORT DEVELOPER TOPICAL 12/31/16 17:00 01/07/17 16:59 Insulin Human Regular 100 units/ Sodium Chloride 100 ml @ 3 mls/hr TITRATE PRN IV 12/31/16 17:00 01/07/17 16:59 Vital Signs / I&O Vital Signs Date Time Temp Pulse Resp B/P (MAP) Pulse Ox O2 Delivery O2 Flow Rate FiO2 01/01/17 15:57 97.8 65 18 113/85 (94) 99 01/01/17 15:57 65 01/01/17 11:50 57 01/01/17 11:50 97.7 57 16 122/79 (93) 99 01/01/17 07:50 97.7 51 16 115/80 (92) 97 01/01/17 07:50 51 01/01/17 06:04 76 01/01/17 05:32 55 01/01/17 04:29 98.0 58 16 109/76 (87) 100 01/01/17 04:08 56 01/01/17 03:49 92 01/01/17 03:02 56 01/01/17 02:04 54 01/01/17 01:34 55 01/01/17 00:13 68 12/31/16 23:20 97.9 62 16 97/69 (78) 96 12/31/16 23:18 64 12/31/16 22:15 64 12/31/16 21:15 73 12/31/16 20:17 62 12/31/16 20:17 97.8 58 16 124/75 (91) 97 12/31/16 20:00 97.8 58 16 124/74 (91) 97 12/31/16 19:24 68 I/O 12/31/16 12/31/16 12/31/16 01/01/1717 10/17/17 06:59 14:59 22:59 06:59 14:59 22:59 Intake Total 480 ml Output Total 1250 ml Balance -770 ml Intake Oral 480 ml Output Urine Total 1250 ml Physical Exam GENERAL: NAD, AAOx3 SKIN: Warm and dry. HEAD: Atraumatic. Normocephalic. EYES: Pupils equal and round. No scleral icterus. No injection or drainage. ENT: No nasal bleeding or discharge. Mucous membranes pink and moist. NECK: Trachea midline. No JVD. CARDIOVASCULAR: Regular rate and rhythm. RESPIRATORY: No accessory muscle use. Clear to auscultation. Breath sounds equal bilaterally. GASTROINTESTINAL: Abdomen soft, non-tender, nondistended. Hepatic and splenic margins not palpable. MUSCULOSKELETAL: Extremities without clubbing, cyanosis, or edema. No obvious deformities. NEUROLOGICAL: Awake and alert. No obvious cranial nerve deficits. Motor grossly within normal limits. Five out of 5 muscle strength in the arms and legs. Normal speech. PSYCHIATRIC: Appropriate mood and affect; insight and judgment normal. Laboratory Laboratory Tests Test 12/31/16 16:42 12/31/16 21:23 12/31/16 22:00 01/01/17 04:15 Activated Partial Thromboplast Time 111.5 SEC 80.0 SEC Urine Color YELLOW Urine Turbidity CLEAR Urine pH 6.5 Urine Specific [place] 1.032 Urine Protein NEG mg/dL Urine Glucose (UA) NEG mg/dL Urine Ketones NEG mg/dL Urine Occult Blood NEG Urine Nitrite NEG Urine Bilirubin NEG Urine Urobilinogen LESS THAN 2.0 MG/DL Urine Leukocyte Esterase NEG Urine RBC 2 /hpf Urine WBC LESS THAN 1 /hpf Microscopic Urinalysis Comment CULT NOT INDICATED Nasal Screen MRSA (PCR) MRSA NOT DETECTED White Blood Count 8.0 TH/MM3 Red Blood Count 4.54 MIL/MM3 Hemoglobin 14.0 GM/DL Hematocrit 41.5 % Mean Corpuscular Volume 91.4 FL Mean Corpuscular Hemoglobin 30.9 PG Mean Corpuscular Hemoglobin Concent 33.8 % Red Cell Distribution Width 14.7 % Platelet Count 270 TH/MM3 Mean Platelet Volume 7.7 FL Neutrophils (%) (Auto) 44.9 % Lymphocytes (%) (Auto) 40.5 % Monocytes (%) (Auto) 10.4 % Eosinophils (%) (Auto) 3.8 % Basophils (%) (Auto) 0.4 % Neutrophils # (Auto) 3.6 TH/MM3 Lymphocytes # (Auto) 3.2 TH/MM3 Monocytes # (Auto) 0.8 TH/MM3 Eosinophils # (Auto) 0.3 TH/MM3 Basophils # (Auto) 0.0 TH/MM3 CBC Comment DIFF FINAL Differential Comment Test 01/01/17 04:20 01/01/17 15:34 Activated Partial Thromboplast Time 49.9 SEC Blood Urea Nitrogen 14 MG/DL Creatinine 0.95 MG/DL Random Glucose 94 MG/DL Total Protein 7.1 GM/DL Albumin 3.6 GM/DL Calcium Level 9.3 MG/DL Magnesium Level 2.1 MG/DL Alkaline Phosphatase 60 U/L Aspartate Amino Transf (AST/SGOT) 29 U/L Alanine Aminotransferase (ALT/SGPT) 41 U/L Total Bilirubin 0.4 MG/DL Sodium Level 140 MEQ/L Potassium Level 4.0 MEQ/L Chloride Level 107 MEQ/L Carbon Dioxide Level 26.0 MEQ/L Anion Gap 7 MEQ/L Estimat Glomerular Filtration Rate 83 ML/MIN Triglycerides Level 147 MG/DL Cholesterol Level 153 MG/DL LDL Cholesterol 84 MG/DL HDL Cholesterol 39.9 MG/DL Cholesterol/HDL Ratio 3.83 RATIO Assessment and Plan Problem List: (1) Chest pain ICD Codes: R07.9 - Chest pain, unspecified Status: Acute (2) Multiple vessel coronary artery disease ICD Codes: I25.10 - Atherosclerotic heart disease of [place] coronary artery without angina pectoris (3) HTN (hypertension) ICD Codes: I10 - Essential (primary) hypertension (4) HLD (hyperlipidemia) ICD Codes: E78.5 - Hyperlipidemia, unspecified Assessment and Plan 1) MVCAD with complex bifurcation of the proximal LAD and diagonal Plan for possible CABG tomorrow with Dr. Aguirre 2) Con't heparin drip 3) Con't ASA/BB Add statin therapy 4) EF 50-55% Problem Qualifiers (1) Chest pain: Qualified Codes: R07.9 - Chest pain, unspecified Adryan Macdonald DO Jan 01, 2017 16:06
[2017-01-01 16:13] LABS: APTT (PATIENT) 42.5 SEC (24.3-30.1)
[2017-01-01 16:13] LABS: HEMOGLOBIN A1a 1.1 %; HEMOGLOBIN A1b 1.8 %; HEMOGLOBIN LA1C 1.9 %; HEMOGLOBIN P3 3.7 %
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
[2017-01-01] MEDS: PRAVASTATIN SOD 80 MG TAB PO SCH (20:05)
[2017-01-01] MEDS: SODIUM CHLORIDE 0.9% FLUSH 10 ML FLUSH IV FLUSH SCH ×2 (20:05)
[2017-01-02] VITALS (22 sets, daily range): BP systolic 91–111; BP diastolic 61–69; PULSE 52–80; RESP 14–18; TEMP 97.5–98.1; O2SAT 95–99
[2017-01-02] MEDS ORDERED: LACTATED RINGER'S 1000 ML IV PRN (00:30)
[2017-01-02] MEDS ORDERED: CHLORHEXIDINE GLUCONATE 2 % 1 PACK (2 CLOTHS) TOPICAL PRN (00:30)
[2017-01-02] MEDS ORDERED: POVIDONE IODINE 5% (ANTISEPSIS KIT) 4 APPLICATIONS EACH NARE PRN (00:30)
[2017-01-02] MEDS ORDERED: INSULIN HUMAN REGULAR 1,000 UNITS/10 ML VIAL SQ PRN (00:30)
[2017-01-02] MEDS ORDERED: SODIUM CHLORID 0.9% 500 ML IV PRN (00:30)
[2017-01-02 05:19] LABS: APTT (PATIENT) 41.2 SEC (24.3-30.1)
[2017-01-02] MEDS: NITROGLYCERIN 2% OINT 1 GM PACKET TOP SCH ×3 (05:37→16:45)
[2017-01-02] MEDS: ATENOLOL 25 MG TAB PO SCH (05:44)
[2017-01-02] MEDS ORDERED: DEXMEDETOMIDINE HCL 200 MCG/2 ML VIAL ONE (06:27)
[2017-01-02] MEDS ORDERED: HEPARIN SODIUM - SQ 10,000 UNITS/ML VIAL ONE (06:30)
[2017-01-02] MEDS ORDERED: VANCOMYCIN HCL 1000 MG VIAL ONE (06:30)
[2017-01-02] MEDS ORDERED: ceFAZolin 2 GM PREMIX 50 ML ONE (06:30)
[2017-01-02] MEDS ORDERED: BUPIVACAINE LIPOSO PF 1.3% INJ 20 ML, DEXAMETHASONE INJ 4 MG, MORPHINE INJ 8 MG in SODI... IRRIGATION SCH (07:15)
[2017-01-02] MEDS: GABAPENTIN 300 MG CAP PO SCH ×3 (09:00→18:01)
[2017-01-02] MEDS: SODIUM CHLORIDE 0.9% FLUSH 10 ML FLUSH IV FLUSH SCH ×3 (09:00→21:28)
[2017-01-02] MEDS: FAMOTIDINE 20 MG TAB PO SCH (09:00)
[2017-01-02] MEDS: ASPIRIN 81 MG CHEW TAB CHEW SCH (09:00)
[2017-01-02] MEDS ORDERED: POTASSIUM CHLOR 40 MEQ PREMIX 100 ML ONE (10:39)
[2017-01-02] MEDS: DOBUTamine PREMIX DRIP 250 ML IV SCH (11:01)
[2017-01-02] MEDS ORDERED: LACTATED RINGER'S 1000 ML INJ 500 ML IV PRN (11:01)
--- NOTE | 2017-01-02 11:09 | PD.OP ---
cc: Ross Aguirre MD; Adryan Macdonald DO Operative Report Date of Surgery: Jan 02, 2017 Preoperative Diagnosis: Postoperative Diagnosis: Procedure: 1. Urgent Off-pump Coronary Artery Bypass Grafting x 2 with Left Internal Mammary Artery (MICHAEL) to the Left Anterior Descending (LAD), reverse saphenous vein graft to the Diagonal (D1) 2. Right Leg Endoscopic Vein [place] 3. Intraoperative Vein Mapping 4. Multi-Level Intercostal Nerve Block. Surgeon: Ross Aguirre Event Marketing Assistant(s): Delia Ibarra Operation and Findings: PREPROCEDURE DIAGNOSES 1. Severe Two-Vessel Coronary Artery Disease. 2. In-stent Restenosis POSTPROCEDURE DIAGNOSES Same SURGICAL PROCEDURE 1. Urgent Off-pump Coronary Artery Bypass Grafting x 2 with Left Internal Mammary Artery (MICHAEL) to the Left Anterior Descending (LAD), reverse saphenous vein graft to the Diagonal (D1) 2. Right Leg Endoscopic Vein [place] 3. Intraoperative Vein Mapping 4. Multi-Level Intercostal Nerve Block. SURGEON Ross Aguirre MD MICROWAVE RADIO TECHNICIAN ROSIE Smith ANESTHESIA General endotracheal HR BUSINESS PARTNER CONSULTANT ABBY Cheek MD PREPARATION ChloraPrep. COUNTS Needle, sponge, and instrument counts were correct. DRAINS Two 32-[place] mediastinal tubes. COMPLICATIONS None. INDICATIONS FOR PROCEDURE The patient is a 56-year-old presenting with chest pain and in-stent restenosis of LAD stent with associated diagonal coronary artery disease. He is being brought to the operating room for surgical revascularization therapy. PROCEDURE Patient was brought to the operating room and placed supine on the OR table. Following the induction of adequate general endotracheal anesthesia and placement of appropriate monitoring devices, intraoperative vein mapping was performed which revealed suitable-caliber conduit in both legs. The patient was then prepped and draped in standard sterile fashion. Next, 2500 units of intravenous heparin was given. The right greater saphenous vein was harvested endoscopically from the calf. This appeared to be a useable-caliber conduit. Simultaneously, a median sternotomy was performed and the left internal mammary artery dissected free off the posterior sternal table. The patient was systemically heparinized and anticoagulation monitored by serial ACT measurements. The internal mammary artery had good pulsatile flow in it and was a decent-caliber conduit. The pericardium was then divided in the midline, the cradle created and targets analyzed. At this point, all anastomoses were performed in a beating-heart fashion using the Maquet stabilizing system. The left internal mammary artery was anastomosed to the distal LAD (2.5 mm) in an end-to-side fashion using 7-0 Prolene. The next segment was anastomosed to the D1 (1.75 mm) in an end-to-side fashion using a running 7-0 Prolene. The proximal anastomosis was then constructed to the ascending aorta in a running manner using 6-0 Prolene. All anastomotic sites were inspected and appeared to be hemostatic and patent. Protamine solution was given. Strict hemostasis was assured. The closure was undertaken. 2 chest tubes were placed. The pericardium was reapproximated in the midline. Bilateral multi-level intercostal nerve block was performed using Exparel solution. The sternum was approximated using sternal wires. The muscular and fascial layer were then closed in 3 layers. The endoscopic vein harvest site was closed in 2 layers. The patient tolerated the procedure well and was transferred to CVICU in stable condition. Ross Aguirre MD Jan 02, 2017 11:09
[2017-01-02] MEDS ORDERED: MORPHINE SULFATE 4 MG/ML INJ IV PUSH PRN (11:15)
[2017-01-02] MEDS ORDERED: CLEVIDIPINE INJ 50 ML IV PRN (11:15)
[2017-01-02] MEDS ORDERED: ALBUMIN 5% INJ 250 ML IV PRN (11:15)
[2017-01-02] MEDS ORDERED: PHENYLEPHRINE INJ 40 MG in DEXTROSE 5% IN WATE 500 ML INJ 496 ML IV PRN ×2 (11:15)
[2017-01-02] MEDS ORDERED: ACETAMINOPHEN 325 MG TAB PO PRN (11:15)
[2017-01-02] MEDS ORDERED: SODIUM CHLORIDE 0.9% FLUSH 10 ML FLUSH IV FLUSH PRN (11:15)
[2017-01-02] MEDS ORDERED: hydrALAZINE HCL 20 MG/ML VIAL IV PUSH PRN (11:15)
[2017-01-02] MEDS ORDERED: CALCIUM CHLORIDE INJ 1 GM in SODIUM CHLORIDE 0.9% INJ 100 ML IV PRN (11:15)
[2017-01-02] MEDS ORDERED: MAGNESIUM SULFATE INJ 2 GM in SODIUM CHLORIDE 0.9% INJ 100 ML IV PRN ×4 (11:15)
[2017-01-02] MEDS ORDERED: NITROGLYCERIN-D5W 50 MG/250 ML 250 ML IV PRN (11:15)
[2017-01-02] MEDS ORDERED: POTASSIUM CHLORIDE 20 MEQ CONTROLLED RELEASE TAB PO PRN ×2 (11:15)
[2017-01-02] MEDS ORDERED: INSULIN REGULAR (IV INFUSION) 100 UNITS in SODIUM CHLORIDE 0.9% INJ 99 ML IV PRN (11:15)
[2017-01-02] MEDS ORDERED: MEPERIDINE HCL 25 MG/ML VIAL IV PUSH PRN (11:15)
[2017-01-02] MEDS ORDERED: CALCIUM CHLORIDE 10% 1 GRAM/10 ML VIAL IV PUSH PRN (11:15)
[2017-01-02] MEDS ORDERED: POTASSIUM CHLOR 20 MEQ PREMIX 100 ML IV PRN ×3 (11:15)
[2017-01-02] MEDS ORDERED: DEXTROSE 50% IN WATER 50 ML VIAL(D50) IV PUSH PRN (11:15)
[2017-01-02] MEDS ORDERED: DEXMEDETOMIDINE INJ 200 MCG in SODIUM CHLORIDE 0.9% INJ 50 ML IV PRN (11:15)
[2017-01-02] MEDS ORDERED: SODIUM BICARBONATE 8.4% SOLN 50 MEQ/50 ML VIAL IV PUSH PRN ×2 (11:15)
[2017-01-02] MEDS ORDERED: RESP: ALBUTEROL 2.5 MG/IPRATROPIUM 0.5 MG NEB (PRN) NEB (11:15)
[2017-01-02] MEDS ORDERED: ACETAMINOPHEN 650 MG SUPP RECTAL PRN (11:15)
[2017-01-02] MEDS ORDERED: DOPamine INJ PREMIX 500 ML IV PRN (11:15)
[2017-01-02] MEDS ORDERED: METOPROLOL TARTRATE 5 MG/5 ML VIAL IV PUSH PRN (11:15)
[2017-01-02] MEDS ORDERED: ONDANSETRON HCL 4 MG/2 ML VIAL IV PUSH PRN (11:15)
[2017-01-02] MEDS ORDERED: RESP: RACEPINEPHRINE 2.25% 0.5 ML NEB NEB PRN (11:15)
[2017-01-02] MEDS ORDERED: Post-op Orders (for Pharmacy) MISC OTHER ONE (11:23)
[2017-01-02] MEDS ORDERED: NITROGLYCERIN 50 MG/DEXTROSE 5% SOLN 250 ML BTL IV ONE (12:00)
[2017-01-02] MEDS ORDERED: CALCIUM CHLORIDE 10% SOLN 1 GRAM/10 ML SYR IV ONE (12:00)
[2017-01-02] MEDS ORDERED: MAGNESIUM SULFATE 1 GM/2 ML VIAL IV ONE (12:00)
[2017-01-02] MEDS ORDERED: ARTIFICIAL TEARS OPTH OINT 3.5 APPLIC/3.5 GM TUBO EACH EYE ONE (12:00)
[2017-01-02] MEDS ORDERED: PROTAMINE SULFATE 250 MG/25 ML VIAL IV ONE (12:00)
[2017-01-02] MEDS ORDERED: VECURONIUM BROMIDE 10 MG VIAL IV ONE (12:00)
[2017-01-02] MEDS ORDERED: HEPARIN SODIUM - SQ 10,000 UNITS/ML VIAL SQ ONE (12:00)
--- NOTE | 2017-01-02 12:44 | RADRPT ---
EXAM DATE/TIME: 01/02/2017 11:47 [facility] COMPARISON: CHEST SINGLE AP, December 28, 2016, 9:53. INDICATIONS : Status Post CABG. MEDICAL HISTORY : Myocardial infarction. Hypercholesterolemia. Coronary artery disease. HTN. Dyspnea. Sciatica. Restles s leg syndrome. Tobacco use. SURGICAL HISTORY : Coronary artery stent. Cardiac cath ENCOUNTER: Subsequent ACUITY: 4 - 6 days PAIN SCORE: Non-responsive. LOCATION: Bilateral chest FINDINGS: Median sternotomy wires are noted status post cardiac surgery. Mediastinal drain and left chest tube are in good positions. There is no pneumothorax. Right internal jugular central line has its tip i n the superior vena cava. The endotracheal tube has its tip 3 cm above the denisse in good position. A nasogastric tube is noted within the stomach. Scattered atelectatic changes are noted within the left mid and lower lung warren. The heart is stable. CONCLUSION: 1. Multiple tubes and lines in good positions. 2. Scattered atelectatic changes within the left mid and lower lung warren. Edvin Llamas MD on January 02, 2017 at 12:04 Board Certified Radiologist. This report was verified electronically.
--- NOTE | 2017-01-02 13:51 | PD.CARD.PN ---
Subjective Subjective Remarks Patient seen earlier Post-CABG, plan for extubation Objective Medications Current Medications Medications (Trade) Dose Ordered Sig/Heri Route Start Time Stop Time Status Last Admin (NS Flush) 2 ml UNSCH PRN IVF 12/28/16 10:00 (Neurontin) 300 mg TID PO 12/28/16 13:00 01/01/17 18:26 (Pravachol) 80 mg HS PO 12/28/16 21:00 01/01/17 20:05 (NS Flush) 2 ml UNSCH PRN IV FLUSH 12/28/16 11:45 (NS Flush) 2 ml BID IV FLUSH 12/28/16 21:00 12/31/16 21:55 (Tylenol) 500 mg Q4H PRN PO 12/28/16 11:45 (Morphine Inj) 2 mg Q4H PRN IV PUSH 12/28/16 11:45 12/31/16 01:35 (Zofran Inj) 4 mg Q6H PRN IV PUSH 12/28/16 11:45 (Pepcid) 20 mg BID PO 12/29/16 09:00 01/01/17 20:05 (Nitroglycerin 2% Oint) 1 inch Q6HR TOP 12/28/16 12:00 01/02/17 05:37 (Nitrostat Sl) 0.4 mg Q5M PRN SL 12/28/16 11:45 (Restoril) 15 mg HS PRN PO 12/28/16 11:45 (Tenormin) 25 mg DAILY PO 12/30/16 09:00 01/01/17 09:47 Heparin Sodium/ Dextrose 250 ml @ 10 mls/hr TITRATE PRN IV 12/29/16 17:00 01/01/17 12:09 (Aspirin Chew) 81 mg DAILY CHEW 01/01/17 09:00 01/01/17 09:24 (NS Flush) 2 ml BID IV FLUSH 12/31/16 21:00 (NS Flush) 2 ml UNSCH PRN IV FLUSH 12/31/16 17:00 Papaverine HCl 60 mg/Nitroglycerin 100 mcg/Diltiazem HCl 100 mg/Sodium Chloride 100 ml @ 0 mls/hr CONTROL MANAGER IRRIGATION 12/31/16 17:00 01/07/17 16:59 01/02/17 08:57 Cefazolin Sodium 500 mg/Sodium Chloride 505 ml @ 0 mls/hr CONTROL MANAGER IRRIGATION 12/31/16 17:00 01/07/17 16:59 01/02/17 08:56 Cefazolin Sodium/ Dextrose 50 ml @ 150 mls/hr CONTROL MANAGER IV 12/31/16 17:00 01/07/17 16:59 (Lopressor) 12.5 mg CONTROL MANAGER PO 12/31/16 17:00 01/07/17 16:59 01/02/17 05:45 (Hibiclens 4% Top Soln) 1 applic CONTROL MANAGER TOPICAL 12/31/16 17:00 01/07/17 16:59 01/01/17 23:51 Insulin Human Regular 100 units/ Sodium Chloride 100 ml @ 3 mls/hr TITRATE PRN IV 12/31/16 17:00 01/07/17 16:59 01/02/17 12:12 Lactated Ringer's 1,000 ml @ 30 mls/hr Q24H PRN IV 01/02/17 00:30 01/05/17 00:29 Sodium Chloride 500 ml @ 30 mls/hr [id number] PRN IV 01/02/17 00:30 01/05/17 00:29 (Betadine 5% Antisepsis Kit) 1 applic CONTROL MANAGER PRN EACH NARE 01/02/17 00:30 01/05/17 00:29 (Chlorhexidine 2% Cloth) 3 pack CONTROL MANAGER PRN TOPICAL 01/02/17 00:30 01/05/17 00:29 (NovoLIN R INJ) See Protocol Table ... CONTROL MANAGER PRN SQ 01/02/17 00:30 01/05/17 00:29 (NS Flush) 2 ml BID IV FLUSH 01/02/17 21:00 UNV (NS Flush) 2 ml UNSCH PRN IV FLUSH 01/02/17 11:15 UNV Dexmedetomidine HCl 200 mcg/ Sodium Chloride 52 ml @ 5.22 mls/hr TITRATE PRN IV 01/02/17 11:15 UNV Nitroglycerin/ Dextrose 250 ml @ 1.5 mls/hr TITRATE PRN IV 01/02/17 11:15 UNV Dobutamine HCl/ Dextrose 250 ml @ 15.075 mls/ hr [id number] IV 01/02/17 11:01 UNV Dopamine HCl/ Dextrose 500 ml @ 11.306 mls/ hr TITRATE PRN IV 01/02/17 11:15 UNV Phenylephrine HCl 40 mg/Dextrose 500 ml @ 30 mls/hr TITRATE PRN IV 01/02/17 11:15 UNV Clevidipine 50 ml @ 2 mls/hr TITRATE PRN IV 01/02/17 11:15 UNV Albumin Human 250 ml @ 250 mls/hr UNSCH PRN IV 01/02/17 11:15 UNV Lactated Ringer's 500 ml @ 500 mls/hr Q1H PRN IV 01/02/17 11:01 UNV (Post-op Orders (for Pharmacy)) STAT ONCE OTHER 01/02/17 11:15 01/02/17 11:16 UNV (Aspirin Chew) 81 mg DAILY PO 01/03/17 09:00 UNV (Plavix) 75 mg DAILY PO 01/03/17 09:00 UNV (Protonix) 40 mg DAILY@06 PO 01/03/17 06:00 UNV (Cordarone) 400 mg Q12HR PO 01/02/17 21:00 UNV Multivitamins 10 ml/Thiamine HCl 500 mg/Folic Acid 1 mg/Sodium Chloride 515.2 ml @ 21 mls/hr DAILY IV 01/03/17 09:00 UNV (Tylenol) 650 mg Q4H PRN PO 01/02/17 11:15 UNV (Tylenol Supp) 650 mg Q4H PRN RECTAL 01/02/17 11:15 UNV Acetaminophen 100 ml @ 400 mls/hr Q6H IV 01/02/17 14:00 01/03/17 08:14 (Morphine Inj) 1 mg Q10M PRN IV PUSH 01/02/17 11:15 (Demerol Inj) 12.5 mg Q4H PRN IV PUSH 01/02/17 11:15 (Percocet 5-325 Mg) 1 tab Q3H PRN PO 01/02/17 11:15 (Toradol Inj) 15 mg Q6H PRN IV PUSH 01/02/17 11:15 01/04/17 11:14 (fentaNYL INJ) 25 mcg Q1H PRN IV PUSH 01/02/17 11:15 (Zofran Inj) 4 mg Q6H PRN IV PUSH 01/02/17 11:15 UNV (Apresoline Inj) 10 mg Q4H PRN IV PUSH 01/02/17 11:15 UNV (Lopressor Inj) 2.5 mg Q1H PRN IV PUSH 01/02/17 11:15 UNV Potassium Chloride 100 ml @ 50 mls/hr UNSCH PRN IV 01/02/17 11:15 UNV Potassium Chloride 100 ml @ 50 mls/hr UNSCH PRN IV 01/02/17 11:15 UNV Potassium Chloride 100 ml @ 50 mls/hr UNSCH PRN IV 01/02/17 11:15 UNV (KCl) 20 meq UNSCH PRN PO 01/02/17 11:15 UNV (KCl) 40 meq UNSCH PRN PO 01/02/17 11:15 UNV Magnesium Sulfate 2 gm/Sodium Chloride 104 ml @ 100 mls/hr UNSCH PRN IV 01/02/17 11:15 UNV Magnesium Sulfate 2 gm/Sodium Chloride 104 ml @ 50 mls/hr UNSCH PRN IV 01/02/17 11:15 UNV Calcium Chloride 1 gm/Sodium Chloride 110 ml @ 100 mls/hr UNSCH PRN IV 01/02/17 11:15 UNV (Calcium Chloride Inj) 0.5 gm UNSCH PRN IV PUSH 01/02/17 11:15 UNV Insulin Human Regular 100 units/ Sodium Chloride 100 ml @ 3 mls/hr TITRATE PRN IV 01/02/17 11:15 UNV (D50w (Vial) Inj) 50 ml UNSCH PRN IV PUSH 01/02/17 11:15 UNV Cefazolin Sodium/ Dextrose 50 ml @ 100 mls/hr Q8H IV 01/02/17 11:15 01/03/17 19:44 UNV (Sodium Bicarbonate 8.4% Inj) 50 meq UNSCH PRN IV PUSH 01/02/17 11:15 UNV (Sodium Bicarbonate 8.4% Inj) 100 meq UNSCH PRN IV PUSH 01/02/17 11:15 UNV (Duoneb Neb) 1 ampule Q6HR NEB NEB 01/02/17 16:00 UNV (Duoneb Neb) 1 ampule Q2HR NEB PRN NEB 01/02/17 11:15 UNV (Racepinephrine 2.25% Neb) 0.5 ml UNSCH X1 PRN NEB 01/02/17 11:15 UNV Vital Signs / I&O Vital Signs Date Time Temp Pulse Resp B/P (MAP) Pulse Ox O2 Delivery O2 Flow Rate FiO2 01/02/17 13:00 93 Simple Mask 6.00 01/02/17 12:45 93 Nasal Cannula 5.00 01/02/17 11:55 98.1 01/02/17 06:00 55 01/02/17 05:00 52 01/02/17 04:00 62 01/02/17 03:10 97.5 60 18 103/68 (80) 95 01/02/17 03:00 59 01/02/17 02:00 59 01/02/17 01:00 55 01/02/17 00:00 64 01/01/17 23:30 98.2 76 18 122/84 (97) 96 01/01/17 23:00 69 01/01/17 22:20 79 01/01/17 21:00 64 01/01/17 20:00 68 01/01/17 19:50 98.5 73 18 114/75 (88) 95 01/01/17 19:00 75 01/01/17 18:00 80 01/01/17 17:00 71 01/01/17 16:00 72 01/01/17 15:57 97.8 65 18 113/85 (94) 99 01/01/17 15:57 65 01/01/17 15:00 72 01/01/17 14:00 66 I/O 01/01/17 01/01/17 01/01/17 01/02/17 01/02/17 01/02/17 06:59 14:59 22:59 06:59 14:59 22:59 Intake Total 480 ml 900 ml 630 ml Output Total 1250 ml 1475 ml Balance -770 ml 900 ml -845 ml Intake Oral 480 ml 900 ml 480 ml IV Total 150 ml Output Urine Total 1250 ml 1475 ml # Voids 5 # Bowel Movements 1 0 Physical Exam GENERAL: NAD SKIN: Warm and dry. HEAD: Atraumatic. Normocephalic. EYES: Pupils equal and round. No scleral icterus. No injection or drainage. ENT: No nasal bleeding or discharge. Mucous membranes pink and moist. NECK: Trachea midline. No JVD. CARDIOVASCULAR: Regular rate and rhythm. RESPIRATORY: No accessory muscle use. Clear to auscultation. Breath sounds equal bilaterally. GASTROINTESTINAL: Abdomen soft, non-tender, nondistended. Hepatic and splenic margins not palpable. MUSCULOSKELETAL: Extremities without clubbing, cyanosis, or edema. No obvious deformities. NEUROLOGICAL: Awake on the vent, following commands Laboratory Laboratory Tests Test 01/01/17 15:34 01/02/17 04:18 Activated Partial Thromboplast Time 42.5 SEC 41.2 SEC Imaging Last 24 hours Impressions Chest X-Ray 01/02/17 0000 Signed Impressions: Service Date/Time: Monday, January 02, 2017 11:47 - CONCLUSION: 1. Multiple tubes and lines in good positions. 2. Scattered atelectatic changes within the left mid and lower lung warren. Edvin Llamas MD Assessment and Plan Problem List: (1) Chest pain ICD Codes: R07.9 - Chest pain, unspecified Status: Acute (2) Multiple vessel coronary artery disease ICD Codes: I25.10 - Atherosclerotic heart disease of [employer] coronary artery without angina pectoris (3) HTN (hypertension) ICD Codes: I10 - Essential (primary) hypertension (4) HLD (hyperlipidemia) ICD Codes: E78.5 - Hyperlipidemia, unspecified (5) S/P CABG x 2 ICD Codes: Z95.1 - Presence of aortocoronary bypass graft Assessment and Plan 1) MVCAD s/p CABGx2 POD #0 MICHAEL to LAD SVG to Diag 2) EF 50-55% pre-operatively 3) ASA/Plavix/Amiodarone 4) Plan extubation Problem Qualifiers (1) Chest pain: Qualified Codes: R07.9 - Chest pain, unspecified Adryan Macdonald DO Jan 02, 2017 13:51
[2017-01-02] MEDS: ACETAMINOPHEN 1000 MG/100 ML 100 ML IV SCH ×2 (14:15→21:29)
--- NOTE | 2017-01-02 14:45 | HHI.FF ---
Face to Face Verification Diagnosis: (1) Chest pain (2) Multiple vessel coronary artery disease (3) HLD (hyperlipidemia) (4) HTN (hypertension) (5) S/P CABG x 2 Physical Therapy Order: Evaluate and Treat Home Health Nursing Order: Signs/symptoms of disease process Medication education-adverse effect Wound care and dressing changes Nursing assessment with vital signs Instructions: Heart and Vascular Surgery patients *Special attention to sternal dressing Mandatory frequency Assess and evaluation, 4 days in a row The next week 3X week 2 times a week for 4 weeks 1 time a week for 5 weeks Schedule Heart and Vascular patients for full 60 day certification period Initial visit Review Open Heart Surgery Discharge Instructions (Sternal precautions, Activity, Elastic hose, Incision care, Driving, Incentive spirometry, Smoking, [place], Work and other) Need Betadine to paint incision Medication reconciliation Importance of follow up care/ check on appointments Make calendar record temperature daily When to call [facility] at Home nurse, review instructions, phone list Incentive Spirometry, demonstration Visit 1- Begin discharge instruction for patient family and/ or caregiver using teach back method- Signs and symptoms of infection Disease characteristics Medicines and side effects Foods and nutrition/ appetite Infection control/ hand washing/ hygiene Visit 2- Continue teaching Discharge instructions- include additional information on smoking cessation , sternal dressing (sternal vac) Visit 3- Continue teaching- Cough and deep breathing, incision monitoring. Choose my plate Visit 4- Continue teaching- Discuss limitations Discuss how they are feeling Discuss progress toward goals Remaining visits- continue teaching and monitoring Incentive spirometry Q1 hr x 10, while awake, also use acapella device hourly whole awake Sternal Breast Bone Precautions: NO pushing or pulling, ( pt must use sternal pillow to support chest with all activities and with coughing ( takes up to 3 months breast bone to heal ) Daily incision care: ok to shower daily, no tub bath. Wash all incisions with liquid dial soap, clean wash cloth to each site, rinse and pat dry. Observe for any signs of infection, such as drainage which is dark yellow, craig, green or foul smelling. Immediately report to the surgeon any drainage from the chest incision, or legs, and for any abnormal drainage from the chest tube sites. Notify surgeon if any temp >101.5 degrees F. When specialty dressing removed/ or if you do not have one, continue to shower daily as above, then rinse and pat incision dry and paint with betadine daily x 5 days. Allow steri strips to fall off if you have any. Avoid lotions, creams, salves, oils, etc. for the first month Please see attached forms for additional instructions regarding post Open Heart specialty wound vacuum dressings. SANGEETHA or Prevena , Dressing to be removed by Nursing staff on F/U appointment: as per DC instructions: PCP in 2 weeks, CV surgeon 2 weeks, Projector Booth Operator 3-4 weeks For any questions regarding incisions/ dressing / meds / post op care or above Symptoms, Saturday 8am-5pm Heart & Vascular Surgery Office ( Dr. Aguirre & Dr. Vincent), After Hours / Nights (5pm -8am) Weekends and Holidays Please call [facility] Cardiac [facility] Unit (C[facility]) Charge Nurse PREVENA Single Use Negative Wound Therapy System Caregiver Instruction Sheet 1. A Prevena dressing system was applied to the chest incision during surgery , to promote wound healing. It works via a suction device (negative pressure wound therapy) to remove low to moderate levels of exudate (drainage) and infectious materials. We recommend that the device stay in place for up to seven days, from day of surgery. 2. Day of Surgery___01/02/17 Day of Removal 01/09/17 3. The dressing should only be removed by a health lawn care technician. Please arrange removal of device to coincide with Home Health visit and or with Nursing staff at Rehab 4. If skin reddening or irritation of skin occurs, or excessive drainage, please notify the Cardiovascular Surgeons office at [phone]. 5. Light showering is permissible; however the pump should be disconnected and placed in safe location, where it will not get wet. The dressing should not be exposed to direct spray or submerged in water. No bath tub / shower only. Ensure the end of the tubing attached to the dressing is facing down so that water does not enter the top of the tube. 6. To remove Prevena dressing: press purple button to turn off device / remove the suction. Then disconnect the tubing from the pump. The fixation strips should be stretched away from the skin and the dressing lifted at one corner and peeled back until it has been fully removed. 7. After removal, it is ok to shower daily using liquid dial soap and clean wash cloth, rinse and pat dry, and leave incision open to air dry. For any concerns regarding Prevena dressing, and or wounds, please contact Bibiana Carlisle, patient navigator at [phone] or notify the Cardiovascular Surgeons office at [phone]. I have seen patient Silvestre Jade on 01/02/17. My clinical findings support the need for the requested home health care services because: Patient has SOB Deconditioned w/ increased weakness I certify that my clinical findings support that this patient is homebound because: Post-op weakness Lesley Colon Jan 02, 2017 14:45
[2017-01-02] MEDS: ceFAZolin 2 GM PREMIX 50 ML IV SCH (16:01)
[2017-01-02] MEDS: KETOROLAC TROMETHAMINE 30 MG/ML (IVP) VIAL IV PUSH PRN (16:52)
[2017-01-02] MEDS: RESP: ALBUTEROL 2.5 MG/IPRATROPIUM 0.5 MG NEB (SCH) NEB ×2 (17:03→20:52)
[2017-01-02] MEDS: PRAVASTATIN SOD 80 MG TAB PO SCH (21:28)
[2017-01-02] MEDS: AMIODARONE 200 MG TAB PO SCH (21:28)
[2017-01-03] VITALS (20 sets, daily range): BP systolic 104–126; BP diastolic 61–84; PULSE 64–86; RESP 14–20; TEMP 97.5–99; O2SAT 92–99
[2017-01-03] MEDS: DOBUTamine PREMIX DRIP 250 ML IV SCH (00:22)
[2017-01-03] MEDS: ceFAZolin 2 GM PREMIX 50 ML IV SCH ×4 (00:28→23:54)
[2017-01-03] MEDS: ACETAMINOPHEN 1000 MG/100 ML 100 ML IV SCH ×2 (02:40→08:31)
[2017-01-03] MEDS: RESP: ALBUTEROL 2.5 MG/IPRATROPIUM 0.5 MG NEB (SCH) NEB ×3 (03:20→20:18)
[2017-01-03] MEDS: KETOROLAC TROMETHAMINE 30 MG/ML (IVP) VIAL IV PUSH PRN ×2 (04:13→22:36)
[2017-01-03 04:57] LABS: HEMATOCRIT 36.5 % (39.0-51.0); MEAN CELL VOLUME 91.1 FL (80.0-100.0); MEAN CORPUSCULAR HEMOGLOBIN 30.8 PG (27.0-34.0); MEAN CORPUSCULAR HGB CONC 33.8 % (32.0-36.0); PLATELET COUNT 226 TH/MM3 (150-450); RED CELL DISTRIBUTION WIDTH 14.5 % (11.6-17.2); REVIEW FLAG FINAL; WHITE BLOOD COUNT 14.9 TH/MM3 (4.0-11.0)
[2017-01-03] MEDS: NITROGLYCERIN 2% OINT 1 GM PACKET TOP SCH ×2 (05:03)
--- NOTE | 2017-01-03 05:09 | RADRPT ---
EXAM DATE/TIME: 01/03/2017 04:03 [facility] COMPARISON: CHEST SINGLE AP, January 02, 2017, 11:47. INDICATIONS : Shortness of breath, possible pulmonary disease. MEDICAL HISTORY : Myocardial infarction. Hypercholesterolemia. Hypertension. CAD SURGICAL HISTORY : Coronary artery stent. CABG. ENCOUNTER: Subsequent ACUITY: 4 - 6 days PAIN SCORE: Non-responsive. LOCATION: Bilateral chest FINDINGS: The cardiac silhouette is normal in transverse diameter. Median sternotomy wires are present. A left chest tube is in place. There is no evidence of pneumothorax. There is subcutaneous emphysema along t he left lateral chest wall. There is subsegmental atelectasis in the left base. CONCLUSION: 1. Postsurgical changes as above. There is no evidence of pneumothorax. Patrice Barrett MD on January 03, 2017 at 5:07 Board Certified Radiologist. This report was verified electronically.
[2017-01-03 05:22] LABS: BICARBONATE 26.6 MEQ/L (21.0-32.0); MAGNESIUM 1.9 MG/DL (1.5-2.5); POTASSIUM 3.9 MEQ/L (3.5-5.1)
[2017-01-03] MEDS: oxyCODONE/ACETAMINOPHEN 5 MG/325 MG TAB PO PRN ×4 (06:07→21:59)
[2017-01-03] MEDS: PANTOPRAZOLE SOD 40 MG DELAYED RELEASE TAB PO SCH (06:08)
[2017-01-03] MEDS: SODIUM CHLORIDE 0.9% FLUSH 10 ML FLUSH IV FLUSH SCH ×2 (08:31→21:00)
[2017-01-03] MEDS: ASPIRIN 81 MG CHEW TAB PO SCH (08:32)
[2017-01-03] MEDS: CLOPIDOGREL 75 MG TAB PO SCH (08:32)
[2017-01-03] MEDS: AMIODARONE 200 MG TAB PO SCH ×2 (08:32→21:57)
[2017-01-03] MEDS: GABAPENTIN 300 MG CAP PO SCH ×3 (08:32→17:14)
[2017-01-03] MEDS: MULTIVITAMIN TAB PO SCH (08:32)
[2017-01-03] MEDS: ATENOLOL 25 MG TAB PO SCH (08:33)
[2017-01-03] MEDS ORDERED: MULTIVITAMIN INJ 10 ML, THIAMINE INJ 500 MG, FOLIC ACID INJ 1 MG in SODIUM CHLORID 0.9%... IV SCH (09:00)
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
[2017-01-03] MEDS ORDERED: GLUCAGON 1 MG/ML VIAL OTHER PRN (09:30)
[2017-01-03] MEDS ORDERED: BISACODYL 10 MG SUPP RECTAL PRN (09:30)
[2017-01-03] MEDS ORDERED: SOD PHOSPHATE/SOD BIPHOSPHATE (ADULT) ENEMA 133ML RECTAL PRN (09:30)
[2017-01-03] MEDS ORDERED: DEXTROSE 50% IN WATER 50 ML VIAL(D50) IV PUSH PRN (09:30)
[2017-01-03] MEDS: INSULIN ASPART SUPPLEMENTAL SCALE SQ SCH ×4 (10:45→22:02)
[2017-01-03] MEDS: MAGNESIUM HYDROXIDE SUSP 30 ML CUP PO SCH (11:00)
[2017-01-03] MEDS: METOPROLOL TARTRATE 25 MG TAB PO SCH ×2 (11:00→22:00)
[2017-01-03] MEDS: DOCUSATE SODIUM 100 MG CAP PO SCH ×2 (11:00→21:59)
[2017-01-03] MEDS ORDERED: PILL SPLITTER OTHER PRN (11:00)
--- NOTE | 2017-01-03 12:36 | EKG ---
Date Performed: 01/03/2017 Time Performed: 05:02:22 PTAGE: 56 years EKG: Normal Sinus rhythm ST elevation Cannot exclude acute injury pattern; although, suspicious for early repolarization. Cli nical correlation needed. Abnormal ECG PREVIOUS TRACING : 12/28/2016 16.04 DOCTOR: Abimael Mayes Interpretating Date/Time 01/03/2017 12:35:11
--- NOTE | 2017-01-03 18:18 | PD.CARD.PN ---
Subjective Subjective Remarks Patient was seen earlier today Chest pain with deep breaths, otherwise no complaints Objective Medications Current Medications Medications (Trade) Dose Ordered Sig/Heri Route Start Time Stop Time Status Last Admin (Neurontin) 300 mg TID PO 12/28/16 13:00 01/03/17 17:14 (Pravachol) 80 mg HS PO 12/28/16 21:00 01/02/17 21:28 (Tylenol) 500 mg Q4H PRN PO 12/28/16 11:45 (Restoril) 15 mg HS PRN PO 12/28/16 11:45 (Hibiclens 4% Top Soln) 1 applic PLANT MANAGER TOPICAL 12/31/16 17:00 01/07/17 16:59 01/01/17 23:51 (NovoLIN R INJ) See Protocol Table ... PLANT MANAGER PRN SQ 01/02/17 00:30 01/05/17 00:29 (NS Flush) 2 ml BID IV FLUSH 01/02/17 21:00 01/03/17 08:31 (NS Flush) 2 ml UNSCH PRN IV FLUSH 01/02/17 11:15 (Aspirin Chew) 81 mg DAILY PO 01/03/17 09:00 01/03/17 08:32 (Plavix) 75 mg DAILY PO 01/03/17 09:00 01/03/17 08:32 (Protonix) 40 mg DAILY@06 PO 01/03/17 06:00 01/03/17 06:08 (Cordarone) 400 mg Q12HR PO 01/02/17 21:00 01/03/17 08:32 (Tylenol) 650 mg Q4H PRN PO 01/02/17 11:15 (Percocet 5-325 Mg) 1 tab Q3H PRN PO 01/02/17 11:15 01/03/17 17:18 (Toradol Inj) 15 mg Q6H PRN IV PUSH 01/02/17 11:15 01/04/17 11:14 01/03/17 04:13 (Zofran Inj) 4 mg Q6H PRN IV PUSH 01/02/17 11:15 (Apresoline Inj) 10 mg Q4H PRN IV PUSH 01/02/17 11:15 (Lopressor Inj) 2.5 mg Q1H PRN IV PUSH 01/02/17 11:15 (D50w (Vial) Inj) 50 ml UNSCH PRN IV PUSH 01/02/17 11:15 Cefazolin Sodium/ Dextrose 50 ml @ 100 mls/hr Q8H IV 01/02/17 16:00 01/04/17 00:29 01/03/17 16:15 (Duoneb Neb) 1 ampule Q2HR NEB PRN NEB 01/02/17 11:15 (Theragran) 1 tab DAILY PO 01/03/17 09:00 01/03/17 08:32 (Duoneb Neb) 1 ampule Q6HR WHILE AWAKE NEB NEB 01/03/17 14:00 01/05/17 13:59 (Colace) 100 mg BID PO 01/03/17 11:00 01/03/17 11:00 (Theragran M Tab) 1 tab DAILY PO 01/04/17 09:00 (Milk Of Magnesia Liq) 30 ml DAILY PO 01/03/17 11:00 01/03/17 11:00 (Dulcolax Supp) 10 mg UNSCH PRN RECTAL 01/03/17 09:30 (Miralax) 17 gm DAILY PO 01/04/17 09:00 (Senokot) 8.6 mg HS PO 01/03/17 21:00 (Fleets Enema (Adult)) 133 ml UNSCH PRN RECTAL 01/03/17 09:30 (Lopressor) 12.5 mg BID PO 01/03/17 11:00 01/03/17 11:00 (NovoLOG SUPPLEMENTAL SCALE) 1 02,06,10,14,18,22 SQ 01/03/17 10:00 01/04/17 06:01 (D50w (Vial) Inj) 50 ml UNSCH PRN IV PUSH 01/03/17 09:30 (Glucagon Inj) 1 mg UNSCH PRN OTHER 01/03/17 09:30 (Percocet 5-325 Mg) 2 tab Q4H PRN PO 01/03/17 09:30 01/03/17 11:56 (NovoLOG SUPPLEMENTAL SCALE) 1 ACHS SQ 01/04/17 08:00 (Pill Splitter) 1 ea UNSCH PRN OTHER 01/03/17 11:00 Vital Signs / I&O Vital Signs Date Time Temp Pulse Resp B/P (MAP) Pulse Ox O2 Delivery O2 Flow Rate FiO2 01/03/17 17:00 69 01/03/17 16:00 76 01/03/17 15:00 98.5 72 20 110/62 (78) 96 01/03/17 15:00 98.5 72 20 110/62 (78) 96 01/03/17 15:00 66 01/03/17 14:00 72 01/03/17 13:30 19 01/03/17 13:00 73 01/03/17 12:00 75 01/03/17 11:00 98.7 68 19 118/73 (88) 98 01/03/17 11:00 64 01/03/17 09:51 82 14 126/84 (98) 99 Arterial Line 01/03/17 09:16 93 21 01/03/17 09:00 14 01/03/17 07:23 14 01/03/17 07:23 14 01/03/17 07:14 98.6 69 14 124/82 (96) 92 121/63 (82) 01/03/17 07:14 69 01/03/17 07:14 92 Nasal Cannula 2.00 01/03/17 04:45 65 01/03/17 03:22 97 Nasal Cannula 2.00 01/03/17 03:15 97.5 65 16 104/64 (77) 95 115/61 (79) 01/02/17 23:30 98.1 66 18 101/67 (78) 97 111/61 (78) 01/02/17 23:30 73 01/02/17 19:30 98 Nasal Cannula 4.00 01/02/17 19:30 97.6 63 16 111/63 (79) 97 91/69 (76) 01/02/17 19:00 60 01/02/17 18:24 68 I/O 01/02/17 01/02/17 01/02/17 01/03/17 01/03/17 01/03/17 07:00 15:00 23:00 07:00 15:00 23:00 Intake Total 630 ml 3750 ml 1036 ml 1100 ml 200 ml 100 ml Output Total 1475 ml 1250 ml 1355 ml 1945 ml 790 ml Balance -845 ml 2500 ml -319 ml -845 ml 200 ml -690 ml Intake Oral 480 ml 30 ml 180 ml 720 ml IV Total 150 ml 100 ml 856 ml 380 ml 200 ml 100 ml Autotransfusion 620 ml Other 3000 ml Output Urine Total 1475 ml 250 ml 945 ml 1835 ml 650 ml Chest Tube Drainage Total 410 ml 110 ml 140 ml Other 1000 ml # Bowel Movements 0 0 0 Physical Exam GENERAL: NAD SKIN: Warm and dry. HEAD: Atraumatic. Normocephalic. EYES: Pupils equal and round. No scleral icterus. No injection or drainage. ENT: No nasal bleeding or discharge. Mucous membranes pink and moist. NECK: Trachea midline. No JVD. CARDIOVASCULAR: Regular rate and rhythm. RESPIRATORY: No accessory muscle use. Clear to auscultation. Breath sounds equal bilaterally. GASTROINTESTINAL: Abdomen soft, non-tender, nondistended. Hepatic and splenic margins not palpable. MUSCULOSKELETAL: Extremities without clubbing, cyanosis, or edema. No obvious deformities. NEUROLOGICAL: Awake on the vent, following commands Laboratory Laboratory Tests Test 01/03/17 04:20 White Blood Count 14.9 TH/MM3 Red Blood Count 4.00 MIL/MM3 Hemoglobin 12.3 GM/DL Hematocrit 36.5 % Mean Corpuscular Volume 91.1 FL Mean Corpuscular Hemoglobin 30.8 PG Mean Corpuscular Hemoglobin Concent 33.8 % Red Cell Distribution Width 14.5 % Platelet Count 226 TH/MM3 Mean Platelet Volume 8.0 FL Blood Urea Nitrogen 11 MG/DL Creatinine 0.91 MG/DL Random Glucose 111 MG/DL Calcium Level 9.0 MG/DL Magnesium Level 1.9 MG/DL Sodium Level 138 MEQ/L Potassium Level 3.9 MEQ/L Chloride Level 103 MEQ/L Carbon Dioxide Level 26.6 MEQ/L Anion Gap 8 MEQ/L Estimat Glomerular Filtration Rate 87 ML/MIN Imaging Last 24 hours Impressions Chest X-Ray 01/03/17 0500 Signed Impressions: Service Date/Time: December 04:03 - CONCLUSION: 1. Postsurgical changes as above. There is no evidence of pneumothorax. Patrice Barrett MD Assessment and Plan Problem List: (1) Chest pain ICD Codes: R07.9 - Chest pain, unspecified Status: Acute (2) Multiple vessel coronary artery disease ICD Codes: I25.10 - Atherosclerotic heart disease of [place] coronary artery without angina pectoris (3) S/P CABG x 2 ICD Codes: Z95.1 - Presence of aortocoronary bypass graft (4) HTN (hypertension) ICD Codes: I10 - Essential (primary) hypertension (5) HLD (hyperlipidemia) ICD Codes: E78.5 - Hyperlipidemia, unspecified Assessment and Plan 1) MVCAD s/p CABGx2 POD #1 MICHAEL to LAD SVG to Diag 2) EF 50-55% pre-operatively 3) ASA/Plavix/Amiodarone 4) Chest pain with breathing, EKG possible pericarditis On Toradol If further, will consider colchicine Problem Qualifiers (1) Chest pain: Qualified Codes: R07.9 - Chest pain, unspecified Adryan Macdonald DO Jan 03, 2017 18:18
[2017-01-03] MEDS: PRAVASTATIN SOD 80 MG TAB PO SCH (21:57)
[2017-01-03] MEDS: SENNOSIDES 8.6 MG TAB PO SCH (21:59)
[2017-01-04] VITALS (27 sets, daily range): BP systolic 98–126; BP diastolic 61–75; PULSE 62–94; RESP 18–23; TEMP 98.3–99.8; O2SAT 92–97
[2017-01-04] MEDS: INSULIN ASPART SUPPLEMENTAL SCALE SQ SCH ×6 (02:00→21:00)
[2017-01-04] MEDS: oxyCODONE/ACETAMINOPHEN 5 MG/325 MG TAB PO PRN ×5 (05:21→21:54)
[2017-01-04] MEDS: PANTOPRAZOLE SOD 40 MG DELAYED RELEASE TAB PO SCH (05:21)
[2017-01-04 05:50] LABS: AUTOMATED NEUTROPHIL # 7.5 TH/MM3 (1.8-7.7); BASOPHIL % 0.3 % (0.0-2.0); EOSINOPHIL # 0.2 TH/MM3 (0-0.4); EOSINOPHIL % 1.4 % (0.0-4.0); HEMO FLAGS DIFF FINAL; LYMPH % 27.3 % (9.0-44.0); LYMPHOCYTE # 3.5 TH/MM3 (1.0-4.8); MEAN CELL VOLUME 92.5 FL (80.0-100.0); MEAN CORPUSCULAR HEMOGLOBIN 30.8 PG (27.0-34.0); MEAN CORPUSCULAR HGB CONC 33.3 % (32.0-36.0); MONO % 12.8 % (0.0-8.0); NEUT % 58.2 % (16.0-70.0); PLATELET COUNT 214 TH/MM3 (150-450); RED BLOOD COUNT 3.79 MIL/MM3 (4.50-5.90); RED CELL DISTRIBUTION WIDTH 14.9 % (11.6-17.2); WHITE BLOOD COUNT 12.8 TH/MM3 (4.0-11.0)
[2017-01-04 06:04] LABS: POTASSIUM 4.1 MEQ/L (3.5-5.1)
[2017-01-04] MEDS: POLYETHYLENE GLYCOL 17 GM PKG PO SCH (08:37)
[2017-01-04] MEDS: MAGNESIUM HYDROXIDE SUSP 30 ML CUP PO SCH (08:38)
[2017-01-04] MEDS: MULTIVITAMIN TAB PO SCH (08:39)
[2017-01-04] MEDS: ASPIRIN 81 MG CHEW TAB PO SCH (08:39)
[2017-01-04] MEDS: METOPROLOL TARTRATE 25 MG TAB PO SCH ×2 (08:39→21:55)
[2017-01-04] MEDS: AMIODARONE 200 MG TAB PO SCH ×2 (08:40→21:54)
[2017-01-04] MEDS: CLOPIDOGREL 75 MG TAB PO SCH (08:40)
[2017-01-04] MEDS: DOCUSATE SODIUM 100 MG CAP PO SCH ×2 (08:40→21:55)
[2017-01-04] MEDS: GABAPENTIN 300 MG CAP PO SCH ×3 (08:40→17:00)
[2017-01-04] MEDS: SODIUM CHLORIDE 0.9% FLUSH 10 ML FLUSH IV FLUSH SCH ×2 (08:48→21:00)
[2017-01-04] MEDS: MULTIVITAMINS/MINERALS THERAPEUTIC TAB PO SCH (08:48)
[2017-01-04] MEDS: RESP: ALBUTEROL 2.5 MG/IPRATROPIUM 0.5 MG NEB (SCH) NEB ×3 (09:00→20:19)
--- NOTE | 2017-01-04 10:51 | PD.CARD.PN ---
Subjective Subjective Remarks Patient doing well Up to the chair, ambulating Chest tubes with ~60cc overnight Objective Medications Current Medications Medications (Trade) Dose Ordered Sig/Heri Route Start Time Stop Time Status Last Admin (Neurontin) 300 mg TID PO 12/28/16 13:00 01/04/17 08:40 (Pravachol) 80 mg HS PO 12/28/16 21:00 01/03/17 21:57 (Tylenol) 500 mg Q4H PRN PO 12/28/16 11:45 (Restoril) 15 mg HS PRN PO 12/28/16 11:45 (Hibiclens 4% Top Soln) 1 applic CLASS A TRUCK DRIVER TOPICAL 12/31/16 17:00 01/07/17 16:59 01/01/17 23:51 (NovoLIN R INJ) See Protocol Table ... CLASS A TRUCK DRIVER PRN SQ 01/02/17 00:30 01/05/17 00:29 (NS Flush) 2 ml BID IV FLUSH 01/02/17 21:00 01/04/17 08:48 (NS Flush) 2 ml UNSCH PRN IV FLUSH 01/02/17 11:15 (Aspirin Chew) 81 mg DAILY PO 01/03/17 09:00 01/04/17 08:39 (Plavix) 75 mg DAILY PO 01/03/17 09:00 01/04/17 08:40 (Protonix) 40 mg DAILY@06 PO 01/03/17 06:00 01/04/17 05:21 (Cordarone) 400 mg Q12HR PO 01/02/17 21:00 01/04/17 08:40 (Tylenol) 650 mg Q4H PRN PO 01/02/17 11:15 (Percocet 5-325 Mg) 1 tab Q3H PRN PO 01/02/17 11:15 01/04/17 10:25 (Toradol Inj) 15 mg Q6H PRN IV PUSH 01/02/17 11:15 01/04/17 11:14 01/03/17 22:36 (Zofran Inj) 4 mg Q6H PRN IV PUSH 01/02/17 11:15 (Apresoline Inj) 10 mg Q4H PRN IV PUSH 01/02/17 11:15 (Lopressor Inj) 2.5 mg Q1H PRN IV PUSH 01/02/17 11:15 (D50w (Vial) Inj) 50 ml UNSCH PRN IV PUSH 01/02/17 11:15 (Duoneb Neb) 1 ampule Q2HR NEB PRN NEB 01/02/17 11:15 (Theragran) 1 tab DAILY PO 01/03/17 09:00 01/04/17 08:39 (Duoneb Neb) 1 ampule Q6HR WHILE AWAKE NEB NEB 01/03/17 14:00 01/05/17 13:59 01/04/17 09:00 (Colace) 100 mg BID PO 01/03/17 11:00 01/04/17 08:40 (Theragran M Tab) 1 tab DAILY PO 01/04/17 09:00 (Milk Of Magnesia Liq) 30 ml DAILY PO 01/03/17 11:00 01/04/17 08:38 (Dulcolax Supp) 10 mg UNSCH PRN RECTAL 01/03/17 09:30 (Miralax) 17 gm DAILY PO 01/04/17 09:00 01/04/17 08:37 (Senokot) 8.6 mg HS PO 01/03/17 21:00 01/03/17 21:59 (Fleets Enema (Adult)) 133 ml UNSCH PRN RECTAL 01/03/17 09:30 (Lopressor) 12.5 mg BID PO 01/03/17 11:00 01/04/17 08:39 (D50w (Vial) Inj) 50 ml UNSCH PRN IV PUSH 01/03/17 09:30 (Glucagon Inj) 1 mg UNSCH PRN OTHER 01/03/17 09:30 (Percocet 5-325 Mg) 2 tab Q4H PRN PO 01/03/17 09:30 01/04/17 05:21 (NovoLOG SUPPLEMENTAL SCALE) 1 ACHS SQ 01/04/17 08:00 (Pill Splitter) 1 ea UNSCH PRN OTHER 01/03/17 11:00 Vital Signs / I&O Vital Signs Date Time Temp Pulse Resp B/P (MAP) Pulse Ox O2 Delivery O2 Flow Rate FiO2 01/04/17 10:00 71 01/04/17 09:05 95 21 01/04/17 09:00 81 01/04/17 08:00 72 01/04/17 07:00 92 Room Air 10/20/17 07:00 90 01/04/17 07:00 98.4 71 19 105/70 (82) 92 01/04/17 06:36 98.9 83 18 110/64 (79) 95 01/04/17 06:00 64 01/04/17 05:00 62 01/04/17 04:00 64 01/04/17 03:00 65 01/04/17 02:00 70 01/04/17 01:00 74 01/04/17 00:09 98.9 83 18 126/75 (92) 95 01/04/17 00:00 74 01/03/17 23:00 75 01/03/17 22:00 86 01/03/17 21:00 78 01/03/17 20:20 95 01/03/17 20:00 84 01/03/17 20:00 99.0 82 18 113/74 (87) 95 01/03/17 20:00 99.0 82 16 113/74 (87) 96 01/03/17 20:00 95 Room Air 01/03/17 19:00 78 01/03/17 18:20 19 01/03/17 18:00 79 01/03/17 17:00 69 01/03/17 16:00 76 01/03/17 15:00 98.5 72 20 110/62 (78) 96 01/03/17 15:00 98.5 72 20 110/62 (78) 96 01/03/17 15:00 66 01/03/17 14:00 72 01/03/17 13:30 19 01/03/17 13:00 73 01/03/17 12:00 75 01/03/17 11:00 98.7 68 19 118/73 (88) 98 01/03/17 11:00 64 I/O 01/03/17 01/03/17 01/03/17 01/04/17 01/04/17 01/04/17 07:00 15:00 23:00 07:00 15:00 23:00 Intake Total 1100 ml 200 ml 100 ml 530 ml Output Total 1945 ml 790 ml 1010 ml Balance -845 ml 200 ml -690 ml -480 ml Intake Oral 720 ml 480 ml IV Total 380 ml 200 ml 100 ml 50 ml Output Urine Total 1835 ml 650 ml 950 ml Chest Tube Drainage Total 110 ml 140 ml 60 ml # Bowel Movements 0 0 Physical Exam GENERAL: NAD SKIN: Warm and dry. HEAD: Atraumatic. Normocephalic. EYES: Pupils equal and round. No scleral icterus. No injection or drainage. ENT: No nasal bleeding or discharge. Mucous membranes pink and moist. NECK: Trachea midline. No JVD. CARDIOVASCULAR: Regular rate and rhythm. RESPIRATORY: No accessory muscle use. Clear to auscultation. Breath sounds equal bilaterally. GASTROINTESTINAL: Abdomen soft, non-tender, nondistended. Hepatic and splenic margins not palpable. MUSCULOSKELETAL: Extremities without clubbing, cyanosis, or edema. No obvious deformities. NEUROLOGICAL: Awake on the vent, following commands Laboratory Laboratory Tests Test 01/04/17 05:30 White Blood Count 12.8 TH/MM3 Red Blood Count 3.79 MIL/MM3 Hemoglobin 11.7 GM/DL Hematocrit 35.0 % Mean Corpuscular Volume 92.5 FL Mean Corpuscular Hemoglobin 30.8 PG Mean Corpuscular Hemoglobin Concent 33.3 % Red Cell Distribution Width 14.9 % Platelet Count 214 TH/MM3 Mean Platelet Volume 8.3 FL Neutrophils (%) (Auto) 58.2 % Lymphocytes (%) (Auto) 27.3 % Monocytes (%) (Auto) 12.8 % Eosinophils (%) (Auto) 1.4 % Basophils (%) (Auto) 0.3 % Neutrophils # (Auto) 7.5 TH/MM3 Lymphocytes # (Auto) 3.5 TH/MM3 Monocytes # (Auto) 1.6 TH/MM3 Eosinophils # (Auto) 0.2 TH/MM3 Basophils # (Auto) 0.0 TH/MM3 CBC Comment DIFF FINAL Differential Comment Blood Urea Nitrogen 16 MG/DL Creatinine 1.02 MG/DL Random Glucose 84 MG/DL Calcium Level 8.7 MG/DL Magnesium Level 2.0 MG/DL Sodium Level 141 MEQ/L Potassium Level 4.1 MEQ/L Chloride Level 106 MEQ/L Carbon Dioxide Level 29.0 MEQ/L Anion Gap 6 MEQ/L Estimat Glomerular Filtration Rate 76 ML/MIN Assessment and Plan Problem List: (1) Chest pain ICD Codes: R07.9 - Chest pain, unspecified Status: Acute (2) Multiple vessel coronary artery disease ICD Codes: I25.10 - Atherosclerotic heart disease of [place] coronary artery without angina pectoris (3) S/P CABG x 2 ICD Codes: Z95.1 - Presence of aortocoronary bypass graft (4) HTN (hypertension) ICD Codes: I10 - Essential (primary) hypertension (5) HLD (hyperlipidemia) ICD Codes: E78.5 - Hyperlipidemia, unspecified Assessment and Plan 1) MVCAD s/p CABGx2 POD #2 MICHAEL to LAD SVG to Diag 2) EF 50-55% pre-operatively 3) ASA/Plavix/Amiodarone/Statin/BB 4) Chest pain with breathing, EKG possible pericarditis yesterday On Toradol If further, will consider colchicine But currently stable Problem Qualifiers (1) Chest pain: Qualified Codes: R07.9 - Chest pain, unspecified Adryan Macdonald DO Jan 04, 2017 10:51
[2017-01-04] MEDS ORDERED: DOCU1CAP39 PO (15:15)
[2017-01-04] MEDS ORDERED: THERTAB15 PO (15:15)
[2017-01-04] MEDS ORDERED: PLAV75TA29 PO (15:15)
[2017-01-04] MEDS ORDERED: METO25TA3 PO (15:15)
[2017-01-04] MEDS ORDERED: POLY17S PO (15:15)
[2017-01-04] MEDS ORDERED: OXYC1TAB63 PO (15:15)
[2017-01-04] MEDS ORDERED: AMIO200T PO (15:15)
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
[2017-01-04] MEDS: SENNOSIDES 8.6 MG TAB PO SCH (21:54)
[2017-01-04] MEDS: PRAVASTATIN SOD 80 MG TAB PO SCH (21:54)
[2017-01-04] MEDS ORDERED: SODIUM CHLORIDE 0.65% NASAL SPRAY 45 ML BTL NASAL PRN (23:00)
[2017-01-04] MEDS: BENZOCAINE-MENTHOL (SUGAR FREE) 15 MG-3.6 MG LOZENGE BUCCAL SCH (23:49)
[2017-01-05] VITALS (28 sets, daily range): BP systolic 101–165; BP diastolic 63–90; PULSE 62–98; RESP 16–18; TEMP 96.6–99.9; O2SAT 93–97
[2017-01-05] MEDS: BENZOCAINE-MENTHOL (SUGAR FREE) 15 MG-3.6 MG LOZENGE BUCCAL SCH ×6 (03:00→22:56)
--- NOTE | 2017-01-05 06:09 | RADRPT ---
EXAM DATE/TIME: 01/05/2017 05:06 [place] COMPARISON: CHEST SINGLE AP, January 03, 2017, 4:03. INDICATIONS : Shortness of breath, possible pneumothorax. MEDICAL HISTORY : Myocardial infarction. Hypercholesterolemia. Hypertension. CAD SURGICAL HISTORY : Coronary artery stent. CABG. ENCOUNTER: Subsequent ACUITY: 1 week PAIN SCORE: 7/10 LOCATION: Bilateral chest FINDINGS: A single AP semierect view of the chest was obtained and again demonstrates a right internal jugular central venous line in place. There is atelectasis in the left lung with no focal consolidation. The right lung is clear. The patient is status post median sternotomy. The previously noted left-sided ch est tube has been removed and there is no visualized pneumothorax. Mild subcutaneous emphysema is pro jected over the left lateral chest wall. CONCLUSION: 1. Interval removal of left-sided chest tube with no visualized pneumothorax. 2. Atelectasis in the left lung with small amount of subcutaneous emphysema again noted. Rafael Reynolds MD on January 05, 2017 at 6:06 Board Certified Radiologist. This report was verified electronically.
[2017-01-05] MEDS: PANTOPRAZOLE SOD 40 MG DELAYED RELEASE TAB PO SCH (06:35)
[2017-01-05] MEDS: oxyCODONE/ACETAMINOPHEN 5 MG/325 MG TAB PO PRN ×4 (06:35→20:01)
[2017-01-05] MEDS: INSULIN ASPART SUPPLEMENTAL SCALE SQ SCH ×4 (08:00→21:00)
[2017-01-05] MEDS: RESP: ALBUTEROL 2.5 MG/IPRATROPIUM 0.5 MG NEB (SCH) NEB (08:00)
[2017-01-05] MEDS: MULTIVITAMINS/MINERALS THERAPEUTIC TAB PO SCH (09:00)
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
[2017-01-05] MEDS: METOPROLOL TARTRATE 25 MG TAB PO SCH ×2 (09:58→20:03)
[2017-01-05] MEDS: MAGNESIUM HYDROXIDE SUSP 30 ML CUP PO SCH (09:58)
[2017-01-05] MEDS: POLYETHYLENE GLYCOL 17 GM PKG PO SCH (09:58)
[2017-01-05] MEDS: DOCUSATE SODIUM 100 MG CAP PO SCH ×2 (09:58→20:03)
[2017-01-05] MEDS: GABAPENTIN 300 MG CAP PO SCH ×2 (09:58→15:48)
[2017-01-05] MEDS: AMIODARONE 200 MG TAB PO SCH ×2 (09:58→20:02)
[2017-01-05] MEDS: ASPIRIN 81 MG CHEW TAB PO SCH (09:58)
[2017-01-05] MEDS: SODIUM CHLORIDE 0.9% FLUSH 10 ML FLUSH IV FLUSH SCH ×2 (09:59→20:04)
[2017-01-05] MEDS: CLOPIDOGREL 75 MG TAB PO SCH (09:59)
[2017-01-05] MEDS: MULTIVITAMIN TAB PO SCH (09:59)
[2017-01-05] MEDS: PRAVASTATIN SOD 80 MG TAB PO SCH (20:02)
[2017-01-05] MEDS: SENNOSIDES 8.6 MG TAB PO SCH (20:03)
[2017-01-06] VITALS (9 sets, daily range): BP systolic 101–117; BP diastolic 60–78; PULSE 68–90; RESP 16–20; TEMP 98.1–98.6; O2SAT 95
[2017-01-06] MEDS: BENZOCAINE-MENTHOL (SUGAR FREE) 15 MG-3.6 MG LOZENGE BUCCAL SCH ×2 (03:00→07:00)
[2017-01-06] MEDS: PANTOPRAZOLE SOD 40 MG DELAYED RELEASE TAB PO SCH (05:56)
[2017-01-06] MEDS: oxyCODONE/ACETAMINOPHEN 5 MG/325 MG TAB PO PRN ×2 (06:32→11:07)
[2017-01-06] MEDS: INSULIN ASPART SUPPLEMENTAL SCALE SQ SCH (08:00)
[2017-01-06] MEDS: ASPIRIN 81 MG CHEW TAB PO SCH (09:06)
[2017-01-06] MEDS: CLOPIDOGREL 75 MG TAB PO SCH (09:06)
[2017-01-06] MEDS: GABAPENTIN 300 MG CAP PO SCH (09:07)
[2017-01-06] MEDS: AMIODARONE 200 MG TAB PO SCH (09:07)
[2017-01-06] MEDS: METOPROLOL TARTRATE 25 MG TAB PO SCH (09:07)
[2017-01-06] MEDS: DOCUSATE SODIUM 100 MG CAP PO SCH (09:07)
[2017-01-06] MEDS: SODIUM CHLORIDE 0.9% FLUSH 10 ML FLUSH IV FLUSH SCH (09:07)
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
--- NOTE | 2017-01-07 10:39 | RSPPFT ---
DATE OF PROCEDURE: 01/01/17 COMMENTS: Spirometry with FVC of 4.0, FEV1 of 3.0, FEV1/FVC ratio at 75%. IMPRESSION: 1. Normal flow rates. 2. No evidence of airways obstruction. 3. Essentially normal pulmonary function study.
[2017-01-07] MEDS ORDERED: COMMODE 3-IN-11 MIS (16:10)
== END 2017-01-06 12:01 | disposition home health service (06) | DRG 234 ==
LOC: NEPE 09:33 → NEDA 11:05 → NEPHCDU 12:48 → HCIS 12-31 09:56 → HCPC 12-31 13:14 → OBSVTOIN 01-01 09:22 → HCPC 01-02 07:10 → HCVI 01-02 11:27 → HCPC 01-03 10:30
PROVIDERS: ADMIT Thoracic Surgery (Cardiothoracic Vascular Surgery); ATTEND Thoracic Surgery (Cardiothoracic Vascular Surgery)
PROC: 4A023N7 Measurement of Cardiac Sampling and Pressure, Left Heart, Percutaneous Approach (ICD-10-PCS; 2016-12-31)
PROC: B2111ZZ Fluoroscopy of Multiple Coronary Arteries using Low Osmolar Contrast (ICD-10-PCS; 2016-12-31)
PROC: 021009W Bypass Coronary Artery, One Artery from Aorta with Autologous Venous Tissue, Open Approach (ICD-10-PCS; 2017-01-02)
PROC: 06BP4ZZ Excision of Right Saphenous Vein, Percutaneous Endoscopic Approach (ICD-10-PCS; 2017-01-02)
PROC: 3E0T3BZ Introduction of Anesthetic Agent into Peripheral Nerves and Plexi, Percutaneous Approach (ICD-10-PCS; 2017-01-02)
PROC: 02100Z9 Bypass Coronary Artery, One Artery from Left Internal Mammary, Open Approach (ICD-10-PCS; principal; 2017-01-02 07:09)
DX: T82.855A Stenosis of coronary artery stent, initial encounter (principal); I10 Essential (primary) hypertension; I25.110 Atherosclerotic heart disease of native coronary artery with unstable angina pectoris; I25.2 Old myocardial infarction; R00.1 Bradycardia, unspecified; G89.21 Chronic pain due to trauma; M54.9 Dorsalgia, unspecified; F17.210 Nicotine dependence, cigarettes, uncomplicated; E78.5 Hyperlipidemia, unspecified; Z82.49 Family history of ischemic heart disease and other diseases of the circulatory system; E66.9 Obesity, unspecified; F12.90 Cannabis use, unspecified, uncomplicated; Y83.1 Surgical operation with implant of artificial internal device as the cause of abnormal reaction of the patient, or of later complication, without mention of misadventure at the time of the procedure; M51.16 Intervertebral disc disorders with radiculopathy, lumbar region
CPT/HCPCS: 71010; 71020; 78452; 80048; 80053; 80061; 81001; 82550; 82552; 82948; 83036; 83735; 84484; 85002; 85025; 85027; 85610; 85730; 86850; 86900; 86901; 86920; 87641; 93005; 93017; 93306; 93454; 93880; 93970; 93998; 94002; 94010; 94150; 94640; 94664; 94667; 94668; A9502; C1769; C1887; C1893; C9290; J0131; J0171; J0461; J0690; J1100; J1644; J1815; J1817; J1885; J2250; J2270; J2440; J2720; J2785; J3010; J3370; J3475; J3480; P9045; Q9967